=== PATIENT | female | born 1960 | race Caucasian/White ===

== ENCOUNTER 2017-06-04 03:44 | Observation (INO) | payer SELFPAY ==
--- NOTE | 2017-06-04 04:00 | ED PDOC ---
Arrival/HPI - General Time Seen by Provider: 06/04/17 03:59 Historian: Patient, Family - History of Present Illness Narrative History of Present Illness (Text): 06/04/17 04:00 Sunita Villegas is a 57 year old female, whose past medical history includes hypertension and anemia, who presents to the Emergency department accompanied by family complaining of chest pain. Relative states patient has been experiencing intermittent mid-sternal chest pain for the past 4 days, worsened with deep inspiration, with associated upper abdominal pain. Patient denies any fever, chills, shortness of breath, nausea, vomiting, diarrhea, urinary symptoms , back pain, neck pain, headache, dizziness, or any other complaints. Time/Duration: < week (4 days) Symptom Onset: Gradual Symptom Course: Intermittent Activities at Onset: Rest, Light Context: Home Past Medical History - Provider Review Nursing Documentation Reviewed: Yes - Cardiac Hx Hypotension: Yes - Psychiatric Hx Substance Use: No Family/Social History - Physician Review Nursing Documentation Reviewed: Yes Family/Social History: Unknown Family HX Smoking Status: no Hx Alcohol Use: No Hx Substance Use: No Allergies/Home Meds Allergies/Adverse Reactions: Allergies No Known Allergies Allergy (Verified 06/04/17 03:49) Home Medications: Home Meds Medication Instructions Recorded Confirmed Unobtainable 06/04/17 06/04/17 Review of Systems - Physician Review All systems were reviewed & negative as marked: Yes - Review of Systems Constitutional: Normal. absent: Fevers Eyes: Normal ENT: Normal Respiratory: Normal. absent: SOB, Cough Cardiovascular: Chest Pain Gastrointestinal: Abdominal Pain Genitourinary Female: Normal Musculoskeletal: Normal. absent: Back Pain, Neck Pain Skin: Normal. absent: Rash Neurological: Normal. absent: Headache, Dizziness Endocrine: Normal Hemo/Lymphatic: Normal Psychiatric: Normal Physical Exam Vital Signs Reviewed: Yes Vital Signs Temp Pulse Resp BP Pulse Ox 06/04/17 07:21 50 L 16 167/92 H 98 06/04/17 06:49 45 L 18 124/87 100 06/04/17 03:56 98.1 F 54 L 18 146/84 99 Temperature: Afebrile Blood Pressure: Normal Pulse: Regular Respiratory Rate: Normal Appearance: Positive for: Well-Appearing, Non-Toxic, Comfortable Pain Distress: None Mental Status: Positive for: Alert and Oriented X 3 - Systems Exam Head: Present: Atraumatic, Normocephalic Pupils: Present: PERRL Extroacular Muscles: Present: EOMI Conjunctiva: Present: Normal Mouth: Present: Moist Mucous Membranes Neck: Present: Normal Range of Motion Respiratory/Chest: Present: Clear to Auscultation, Good Air Exchange. No: Respiratory Distress, Accessory Muscle Use Cardiovascular: Present: Regular Rate and Rhythm, Normal S1, S2. No: Murmurs Abdomen: Present: Normal Bowel Sounds. No: Tenderness, Distention, Peritoneal Signs Back: Present: Normal Inspection Upper Extremity: Present: Normal Inspection. No: Cyanosis, Edema Lower Extremity: Present: Normal Inspection. No: Edema Neurological: Present: GCS=15, CN II-XII Intact, Speech Normal Skin: Present: Warm, Dry, Normal Color. No: Rashes Psychiatric: Present: Alert, Oriented x 3, Normal Insight, Normal Concentration Medical Decision Making ED Course and Treatment: 06/04/17 04:00 Impression: 57 year old female complaining of chest pain and upper abdominal pain. Plan: -- EKG -- Chest X-ray -- Labs, cardiac enzymes, D-dimer -- Urinalysis -- Reassess and disposition Progress Notes: Reviewed EKG, sinus bradycardia at [address] bpm[address] Non-specific ST/T wave changes. 06/04/17 05:00 Reviewed radiology, Chest X-ray shows no acute processes. case d/w dr canela accepts case 06/05/17 06:31 - Lab Interpretations Lab Results: 06/04/17 05:10 06/04/17 05:10 Lab Results 06/04/17 05:10: Sodium 145, Potassium 3.9, Chloride 105, Carbon Dioxide 30, Anion Gap 14, BUN 16, Creatinine 0.9, Est GFR ( Amer) > 60, Est GFR (Non- Af Amer) > 60, Random Glucose 89, Calcium 10.1, Magnesium 2.0, Total Bilirubin 0.6, AST 33, ALT 38, Alkaline Phosphatase 75, Lactate Dehydrogenase 519, Total Creatine Kinase 120, Troponin I < 0.01, Total Protein 8.7 H, Albumin 4.6, Globulin 4.1, Albumin/Globulin Ratio 1.1, Triglycerides 218 H, Cholesterol 189, LDL Cholesterol Direct 116, HDL Cholesterol 34, Lipase 252 06/04/17 05:10: D-Dimer, Quantitative 0.37 06/04/17 05:10: WBC 5.3, RBC 4.66, Hgb 14.1, Hct 41.1, MCV 88.2, MCH 30.3, MCHC 34.3, RDW 14.1, Plt Count 199, MPV 11.6 H, Gran % 46.8 L, Lymph % (Auto) 40.2 H , [place] % (Auto) 10.3 H, Eos % (Auto) 2.3, Baso % (Auto) 0.4, Gran # 2.49, Lymph # 2.1, [place] # 0.6, Eos # 0.1, Baso # 0.02 - RAD Interpretation Radiology Orders: 06/04/17 04:00 CHEST PORTABLE [RAD] Stat - EKG Interpretation Interpreted by ED Physician: Yes Type: 12 lead EKG - Medication Orders Current Medication Orders: Hydralazine HCl (Apresoline) 10 mg IVP Q6 PRN PRN Reason: Systolic Blood Pressure Ibuprofen (Motrin Tab) 400 mg PO Q6H PRN PRN Reason: Headache Last Admin: 06/04/17 15:50 Dose: 400 mg Lisinopril (Zestril) 10 mg PO DAILY [facility] Last Admin: 06/04/17 10:19 Dose: 10 mg Pantoprazole Sodium (Protonix Ec Tab) 40 mg PO 0600 [facility] Last Admin: 06/05/17 06:06 Dose: 40 mg Discontinued Medications Acetaminophen (Tylenol 325mg Tab) 650 mg PO STAT ONE Stop: 06/04/17 20:14 Last Admin: 06/04/17 20:23 Dose: 650 mg Aspirin (Ecotrin) 325 mg PO STAT STA Stop: 06/04/17 06:58 Last Admin: 06/04/17 07:10 Dose: 325 mg Nitroglycerin (Nitro-Bid 2% Oint) 1 ea TOP ONCE STA Stop: 06/04/17 06:58 Last Admin: 06/04/17 07:10 Dose: 1 ea Pantoprazole Sodium (Protonix Inj) 40 mg IVP DAILY [facility] Last Admin: 06/04/17 10:14 Dose: 40 mg - Scribe Statement The provider has reviewed the documentation as recorded by the Cindy Garrison Provider Scribe Attestation: All medical record entries made by the Felixibriley were at my direction and personally dictated by me. I have reviewed the chart and agree that the record accurately reflects my personal performance of the history, physical exam, medical decision making, and the department course for this patient. I have also personally directed, reviewed, and agree with the discharge instructions and disposition. Disposition/Present on Arrival - Present on Arrival Any Indicators Present on Arrival: No History of DVT/PE: No History of Uncontrolled Diabetes: No Urinary Catheter: No History of Decub. Ulcer: No History Surgical Site Infection Following: None - Disposition Have Diagnosis and Disposition been Completed?: Yes Diagnosis: Chest pain Disposition: HOSPITALIZED Disposition Time: 07:30 Condition: GOOD
[2017-06-04 05:56] LABS: BASO # 0.02 K/mm3 (0.0-2.0); BASO % 0.4 % (0.0-3.0); EOS # 0.1 (0.0-0.7); EOS % 2.3 % (1.5-5.0); GRAN # 2.49 (1.4-6.5); GRAN % 46.8 % (50.0-68.0); HEMATOCRIT 41.1 % (36.0-48.0); LYMPH # 2.1 (1.2-3.4); LYMPH % 40.2 % (22.0-35.0); MEAN CELL VOLUME 88.2 fl (80.0-105.0); MEAN CORPUSCULAR HEMOGLOBIN 30.3 pg (25.0-35.0); MEAN CORPUSCULAR HGB CONC 34.3 g/dl (31.0-37.0); MEAN PLATELET VOLUME 11.6 fl (7.0-11.0); MONO # 0.6 (0.1-0.6); MONO % 10.3 % (1.0-6.0); RED CELL DISTRIBUTION WIDTH 14.1 % (11.5-14.5); WHITE BLOOD COUNT 5.3 10^3/ul (4.5-11.0)
[2017-06-04 06:02] LABS: ALB/GLOB RATIO 1.1 (1.1-1.8); ALKALINE PHOSPHATASE 75 U/L (38-133); ALT/SGPT 38 U/L (7-56); AST/SGOT 33 U/L (15-39); BILIRUBIN,TOTAL 0.6 mg/dL (0.2-1.3); BLOOD UREA NITROGEN 16 mg/dL (7-21); CALCIUM 10.1 mg/dL (8.4-10.5); CARBON DIOXIDE 30 mmol/L (21-33); CHLORIDE 105 mmol/L (98-107); GFR AFRICAN-AMERICAN > 60; GLUCOSE,RANDOM 89 mg/dL (70-110); POTASSIUM 3.9 mmol/L (3.6-5.0); SODIUM 145 mmol/L (132-148); TOTAL PROTEIN 8.7 g/dL (5.8-8.3)
[2017-06-04 06:16] LABS: TROPONIN I < 0.01 ng/mL
[2017-06-04] MEDS ORDERED: Nitroglycerin 2% Ointment Foilpak UD TOP STA (06:57)
[2017-06-04] MEDS ORDERED: Aspirin 325 mg EC Tablets PO STA (06:57)
[2017-06-04 09:57] LABS: CHOLESTEROL 189 mg/dL (130-200); LIPASE 252 U/L (23-300)
--- NOTE | 2017-06-04 10:53 | CARD ---
APPROVED REPORT EKG Measurement Heart [id number] <Conclusion> Sinus bradycardia Possible Left atrial enlargement Borderline ECG
--- NOTE | 2017-06-04 11:21 | RAD ---
HISTORY: cp COMPARISON: No prior. FINDINGS: LUNGS: No active pulmonary disease. PLEURA: No significant pleural effusion identified, no pneumothorax apparent. CARDIOVASCULAR: Normal. OSSEOUS STRUCTURES: No significant abnormalities. VISUALIZED UPPER ABDOMEN: Normal. OTHER FINDINGS: None. IMPRESSION: No active disease.
[2017-06-04 12:48] VITALS: BMI 30.2
--- NOTE | 2017-06-04 14:14 | CP.PCM.HP ---
<DELA CRUZRICCO - Last Filed: 06/04/17 14:19> History of Present Illness - History of Present Illness History of Present Illness: CC: Chest Pain HPI: Mrs. Villegas is a 57 year old [place] female with a past medical history significant for HTN and hemolytic anemia who presented to the [facility] [place] [place] ED complaining of substernal chest pain over the course of the past four days. Patient describes the pain as a constant pressure that radiates to her back and intermittently to her right arm and leg. She reports that the pain is only present at night whenever she gets into bed and that she does not experience this pain during the day. She reports that it has no associations with activity , rest, certain foods, eating or body positions and no alleviating or aggravating factors. She endorses that she was seen in a hospital in [place] last year where she was found to have a hemoglobin of 3 and was given an unspecified amount of units of blood at that time with a diagnosis of hemolytic anemia. At that visit, she was also experiencing a similar type of chest pain and received a cardiac work up which included an ECHO that the patient reports as "normal". Of note, patient lives in [place] and is here visiting her daughter, who provided translation for the evaluation. She has been here for a total of three months and states that she visits her daughter for six months at a time. She denies any vertigo, LOC, headache, fever, chills, weight loss or gain, hair thinning, changes in her vision, shortness of breath, cough, palpitations, abdominal pain, N/V, diarrhea, constipation, any new rashes, or any new numbness /tingling/weakness of any of her extremities. PMH: HTN and Hemolytic Anemia PSH: Denies Family History: Father has CRC; Denies any history of CAD or CT at any age Social History: Denies tobacco, alcohol and illicit drug use; Patient is currently visiting her daughter and lives in [place] LMP: 07/2016 Allergies: NKDA Home Medications: 20mg of "amandeep colored pill" for HTN Present on Admission - Present on Admission Any Indicators Present on Admission: No Review of Systems - Review of Systems Review of Systems: Please refer to HPI Past Patient History - Past Social History Smoking Status: Never Smoked - CARDIAC Hx Cardiac Disorders: Yes (hypotention) - HEMATOLOGICAL/ONCOLOGICAL Hx Anemia: Yes - MUSCULOSKELETAL/RHEUMATOLOGICAL Hx Falls: No - PSYCHIATRIC Hx Substance Use: No Meds Allergies/Adverse Reactions: Allergies Allergy/AdvReac Type Severity Reaction Status Date / Time No Known Allergies Allergy Verified 06/04/17 03:49 Physical Exam - Constitutional Appears: Non-toxic, No Acute Distress - Head Exam Head Exam: ATRAUMATIC, NORMOCEPHALIC - Eye Exam Eye Exam: EOMI, Normal appearance, PERRL Pupil Exam: NORMAL ACCOMODATION - ENT Exam ENT Exam: Mucous Membranes Moist, Normal Exam, Normal Oropharynx - Neck Exam Neck exam: Positive for: Full Rom, Normal Inspection. Negative for: Lymphadenopathy, Tenderness - Respiratory Exam Respiratory Exam: Clear to Auscultation Bilateral, NORMAL BREATHING PATTERN. absent: Chest Wall Tenderness, Rales, Rhonchi, Wheezes, Respiratory Distress - Cardiovascular Exam Cardiovascular Exam: Bradycardia, REGULAR RHYTHM, +S1, +S2. absent: Tachycardia , RRR, Systolic Murmur Additional comments: HR in the 50's on exam - GI/Abdominal Exam GI & Abdominal Exam: Normal Bowel Sounds, Soft. absent: Distended, Firm, Guarding, Tenderness Additional comments: [place] Sign negative - Exam Exam: absent: Bladder Distension - Extremities Exam Extremities exam: Positive for: normal capillary refill, pedal pulses present. Negative for: calf tenderness, pedal edema - Back Exam Back exam: absent: CVA tenderness (L), CVA tenderness (R), paraspinal tenderness , rash noted, vertebral tenderness - Neurological Exam Neurological exam: Alert, Oriented x3 - Psychiatric Exam Psychiatric exam: Normal Affect, Normal Mood - Skin Skin Exam: Dry, Intact, Normal Color, Warm Results - Vital Signs Recent Vital Signs: Last Vital Signs Temp 98.2 F 06/04/17 09:56 Pulse 56 L 06/04/17 12:45 Resp 16 06/04/17 12:45 BP 164/82 H 06/04/17 12:45 Pulse Ox 98 06/04/17 07:21 - Labs Result Diagrams: 06/04/17 05:10 06/04/17 05:10 Labs: Laboratory Results - last 24 hr 06/04/17 06/04/17 09:49 10:59 Troponin I < 0.01 TSH 3rd Generation 2.93 - EKG Data EKG Interpreted by: Myself EKG shows normal: Sinus rhythm Rate: Bradycardia Assessment & Plan - Assessment and Plan (Free Text) Assessment: 57 year old Welsh female with a past medical history significant for HTN and hemolytic anemia who presented to the [facility] [place] [place] ED complaining of substernal chest pain over the course of the past four days. Patient is here visiting her daughter and lives in [place]. Plan: 1. Substernal Angina Pectoris -Etiologies considered: CAD, CT, PE, Cholecystitis, Pancreatitis and Costochondritis -EKG shows sinus bradycardia at 53 bpm -Chest X-Ray showed no active disease -Negative D-dimer -Lipase WNL -three serial troponins ordered with two resulting as negative thus far -isolated elevation in triglycerides at 218, otherwise normal lipid panel -motrin 400mg PO Q6H PRN for pain control/headaches -UDS, Hemoglobin A1C, Thoracic Spine X-Ray, ECHO and repeat EKG pending -Heart Healthy Carbohydrate Consistent Diet -telemetry monitoring 2. Bradycardia -patient reports this as a chronic condition -HR has been in 50's since admission -TSH 2.93 (WNL) -currently asymptomatic but will continue to monitor 3. HTN -start lisinopril 10mg daily and hydralazine 10mg PRN for SBP over 170mmHG -will monitor with Q8H vital signs 4. GI/DVT Prophylaxis -Protonix/scd's Patient seen and case discussed with attending, Dr. Matti Landa. - Date & Time Date: 06/04/17 Time: 14:17 Decision To Admit - Pt Status Changed To: Hospital Disposition Of: Observation - . Bed Request Type: Telemetry <Matti Landa - Last Filed: 06/05/17 16:34> Results - Vital Signs Recent Vital Signs: Last Vital Signs Temp 97.7 F 06/05/17 12:00 Pulse 50 L 06/05/17 13:50 Resp 28 H 06/05/17 13:50 BP 135/78 06/05/17 12:30 Pulse Ox 96 06/05/17 10:00 - Labs Result Diagrams: 06/05/17 06:20 06/05/17 06:20 Labs: Laboratory Results - last 24 hr 06/04/17 06/04/17 06/05/17 07:30 16:30 06:20 WBC RBC Hgb Hct MCV MCH MCHC RDW Plt Count MPV Gran % Lymph % (Auto) [place] % (Auto) Eos % (Auto) Baso % (Auto) Gran # Lymph # [place] # Eos # Baso # Sodium Potassium Chloride Carbon Dioxide Anion Gap BUN Creatinine Est GFR ( Amer) Est GFR (Non-Af Amer) Random Glucose Hemoglobin A1c 5.3 Calcium Total Bilirubin AST ALT Alkaline Phosphatase Troponin I < 0.01 Total Protein Albumin Globulin Albumin/Globulin Ratio Urine Color Yellow Urine Appearance Sl cloudy Urine pH 6.0 Ur Specific [place] >= 1.030 Urine Protein Trace H Urine Glucose (UA) Negative Urine Ketones Negative Urine Blood Negative Urine Nitrate Negative Urine Bilirubin Negative Urine Urobilinogen 0.2 Ur Leukocyte Esterase Moderate H Urine RBC 0 - 2 Urine WBC 5 - 10 Ur Epithelial Cells 3 - 4 Urine Bacteria Mod Urine Opiates Screen Urine Methadone Screen Ur Barbiturates Screen Ur Phencyclidine Scrn Ur Amphetamines Screen U Benzodiazepines Scrn U Oth Cocaine Metabols U Cannabinoids Screen 06/05/17 06/05/17 06/05/17 06:20 06:20 06:20 WBC 5.9 RBC 4.58 Hgb 13.6 Hct 40.3 MCV 88.0 MCH 29.7 MCHC 33.7 RDW 14.1 Plt Count 179 MPV 10.8 Gran % 52.5 Lymph % (Auto) 37.1 H [place] % (Auto) 7.7 H Eos % (Auto) 2.4 Baso % (Auto) 0.3 Gran # 3.09 Lymph # 2.2 [place] # 0.5 Eos # 0.1 Baso # 0.02 Sodium 144 Potassium 4.4 Chloride 105 Carbon Dioxide 30 Anion Gap 13 BUN 22 H Creatinine 1.0 Est GFR ( Amer) > 60 Est GFR (Non-Af Amer) 57 Random Glucose 93 Hemoglobin A1c Calcium 9.5 Total Bilirubin 0.8 AST 28 ALT 35 Alkaline Phosphatase 64 Troponin I Total Protein 8.0 Albumin 4.3 Globulin 3.8 Albumin/Globulin Ratio 1.1 Urine Color Urine Appearance Urine pH Ur Specific [place] Urine Protein Urine Glucose (UA) Urine Ketones Urine Blood Urine Nitrate Urine Bilirubin Urine Urobilinogen Ur Leukocyte Esterase Urine RBC Urine WBC Ur Epithelial Cells Urine Bacteria Urine Opiates Screen Negative Urine Methadone Screen Negative Ur Barbiturates Screen Negative Ur Phencyclidine Scrn Negative Ur Amphetamines Screen Negative U Benzodiazepines Scrn Negative U Oth Cocaine Metabols Negative U Cannabinoids Screen Negative Attending/Attestation - Attestation I have personally seen and examined this patient.: Yes I have fully participated in the care of the patient.: Yes I have reviewed all pertinent clinical information: Yes Notes (Text): I have seen and examined patient at bedside. Agree with the above note with the following additions/ exceptions: Briefly this is 57 year old [place] female with history of HTN, sinus bradycardia and hemolytic anemia who was admitted for evaluation of chest pain. EKG showed SB. Initial CE is negative. CXR is negative. Patient complains of pain in the mid back in thoracic region. Will monitor patient in telemetry floor. Will monitor serial cardiac iso and ekg. Last stress test done 1 year ago was normal. Will order thoracic spine xray. Start lisinopril for HTN. Upon discharge patient will follow up with PMD. Dr Matti Landa
--- NOTE | 2017-06-04 17:15 | RAD ---
HISTORY: Back pain COMPARISON: No prior. FINDINGS: BONES: Alignment maintained. No fracture. DISC SPACES: Normal. SOFT TISSUES: Normal. OTHER FINDINGS: None. IMPRESSION: Normal radiographs of the thoracic spine.
[2017-06-05] MEDS ORDERED: Pantoprazole 40 mg EC Tab PO SCH (06:00)
[2017-06-05 06:33] LABS: URINE BILIRUBIN NEGATIVE (NEGATIVE); URINE BLOOD NEGATIVE (NEGATIVE); URINE GLUCOSE (UA) NEGATIVE (NEGATIVE); URINE KETONE NEGATIVE (NEGATIVE); URINE LEUKOCYTE ESTERASE MODERATE Leu/uL (NEGATIVE); URINE PROTEIN TRACE mg/dL (<30 mg/dL); URINE UROBILINOGEN 0.2 E.U./dL (<1 E.U./dL)
[2017-06-05 06:35] LABS: URINE APPEARANCE SL CLOUDY (CLEAR); URINE COLOR YELLOW (YELLOW)
[2017-06-05 06:49] LABS: BASO # 0.02 K/mm3 (0.0-2.0); BASO % 0.3 % (0.0-3.0); EOS # 0.1 (0.0-0.7); EOS % 2.4 % (1.5-5.0); GRAN # 3.09 (1.4-6.5); GRAN % 52.5 % (50.0-68.0); HEMATOCRIT 40.3 % (36.0-48.0); LYMPH # 2.2 (1.2-3.4); LYMPH % 37.1 % (22.0-35.0); MEAN CORPUSCULAR HEMOGLOBIN 29.7 pg (25.0-35.0); MEAN CORPUSCULAR HGB CONC 33.7 g/dl (31.0-37.0); MEAN PLATELET VOLUME 10.8 fl (7.0-11.0); MONO # 0.5 (0.1-0.6); MONO % 7.7 % (1.0-6.0); RED CELL DISTRIBUTION WIDTH 14.1 % (11.5-14.5); WHITE BLOOD COUNT 5.9 10^3/ul (4.5-11.0)
[2017-06-05 06:59] LABS: URINE BACTERIA MOD (NEG); URINE RBC 0 - 2 /hpf (0-2)
[2017-06-05 07:06] LABS: ALB/GLOB RATIO 1.1 (1.1-1.8); ALKALINE PHOSPHATASE 64 U/L (38-133); ALT/SGPT 35 U/L (7-56); AST/SGOT 28 U/L (15-39); BILIRUBIN,TOTAL 0.8 mg/dL (0.2-1.3); BLOOD UREA NITROGEN 22 mg/dL (7-21); CALCIUM 9.5 mg/dL (8.4-10.5); CARBON DIOXIDE 30 mmol/L (21-33); CHLORIDE 105 mmol/L (98-107); GFR AFRICAN-AMERICAN > 60; GLUCOSE,RANDOM 93 mg/dL (70-110); POTASSIUM 4.4 mmol/L (3.6-5.0); SODIUM 144 mmol/L (132-148)
[2017-06-05 08:25] VITALS: TEMP 97.7
[2017-06-05] MEDS ORDERED: Tmp-Smz 800 mg-160 mg DS Tab PO SCH (10:00)
[2017-06-05 10:40] VITALS: O2SAT 96
[2017-06-05 13:56] VITALS: PULSE 50; RESP 28
[2017-06-05 14:24] VITALS: BP 135/78
--- NOTE | 2017-06-05 15:25 | CARD ---
APPROVED REPORT EXAM: Two-dimensional and M-mode echocardiogram with Doppler and color Doppler. INDICATION Chest Pain 2D DIMENSIONS Left Atrium (2D)4.0 (1.6-4.0cm)IVSd1.2 (0.7-1.1cm) LVDd3.8 (3.9-5.9cm)PWd1.2 (0.7-1.1cm) LVDs2.7 (2.5-4.0cm)FS (%) 29.9 % LVEF (%)57.8 (>50%) M-Mode DIMENSIONS Aortic Root2.30 (2.2-3.7cm)Aortic Cusp Exc.1.50 (1.5-2.0cm) Aortic Valve AoV Peak Jwsrdkue799.0cm/[place] Peak GR.13mmHg Mitral Valve MV E Kfeauumw11.1cm/sMV A Rginsagi14.0cm/sE/A ratio0.9 TDI E/Lateral E'0.0E/Medial E'0.0 Tricuspid Valve TR Peak [id number]/sRAP [id number] Peak Gr.29mmHg [id number] LEFT VENTRICLE The left ventricle is normal size. There is borderline concentric left ventricular hypertrophy. The left ventricular function is normal. The left ventricular ejection fraction is within the normal range. There is normal LV segmental wall motion. Transmitral Doppler flow pattern is Grade I-abnormal relaxation pattern. RIGHT VENTRICLE The right ventricle is normal size. There is normal right ventricular wall thickness. The right ventricular systolic function is normal. ATRIA The left atrium size is normal. The right atrium size is normal. AORTIC VALVE The aortic valve is not well visualized. There is trace to mild aortic regurgitation. MITRAL VALVE The mitral valve is normal in structure. There is no mitral valve regurgitation noted. TRICUSPID VALVE There is mild tricuspid regurgitation. There is mild pulmonary hypertension. GREAT VESSELS The aortic root is normal in size. The IVC was not visualized. <Conclusion> The left ventricle is normal size. There is borderline concentric left ventricular hypertrophy. The left ventricular function is normal. The left ventricular ejection fraction is within the normal range. There is normal LV segmental wall motion. Transmitral Doppler flow pattern is Grade I-abnormal relaxation pattern. There is trace to mild aortic regurgitation. There is mild tricuspid regurgitation. There is mild pulmonary hypertension.
--- NOTE | 2017-06-05 15:38 | CARD ---
APPROVED REPORT EKG Measurement Heart [id number] <Conclusion> Marked sinus bradycardia Abnormal ECG
--- NOTE | 2017-06-28 12:45 | CP.PCM.DIS ---
<RICCO DELA CRUZ - Last Filed: 06/28/17 12:58> Provider - Provider Date of Admission: 06/04/17 06:57 Attending physician: Matti Landa MD Time Spent in preparation of Discharge (in minutes): 41 Hospital Course - Lab Results Lab Results: Most Recent Lab Values WBC 5.9 10^3/ul (4.5-11.0) 06/05/17 06:20 RBC 4.58 10^6/uL (3.5-6.1) 06/05/17 06:20 Hgb 13.6 g/dL (12.0-16.0) 06/05/17 06:20 Hct 40.3 % (36.0-48.0) 06/05/17 06:20 MCV 88.0 fl (80.0-105.0) 06/05/17 06:20 MCH 29.7 pg (25.0-35.0) 06/05/17 06:20 MCHC 33.7 g/dl (31.0-37.0) 06/05/17 06:20 RDW 14.1 % (11.5-14.5) 06/05/17 06:20 Plt Count 179 10^3/uL (120.0-450.0) 06/05/17 06:20 MPV 10.8 fl (7.0-11.0) 06/05/17 06:20 Gran % 52.5 % (50.0-68.0) 06/05/17 06:20 Lymph % (Auto) 37.1 % (22.0-35.0) H 06/05/17 06:20 [place] % (Auto) 7.7 % (1.0-6.0) H 06/05/17 06:20 Eos % (Auto) 2.4 % (1.5-5.0) 06/05/17 06:20 Baso % (Auto) 0.3 % (0.0-3.0) 06/05/17 06:20 Gran # 3.09 (1.4-6.5) 06/05/17 06:20 Lymph # 2.2 (1.2-3.4) 06/05/17 06:20 [place] # 0.5 (0.1-0.6) 06/05/17 06:20 Eos # 0.1 (0.0-0.7) 06/05/17 06:20 Baso # 0.02 K/mm3 (0.0-2.0) 06/05/17 06:20 D-Dimer, Quantitative 0.37 mg/L FEU (0-0.50) 06/04/17 05:10 Sodium 144 mmol/L (132-148) 06/05/17 06:20 Potassium 4.4 mmol/L (3.6-5.0) 06/05/17 06:20 Chloride 105 mmol/L (98-107) 06/05/17 06:20 Carbon Dioxide 30 mmol/L (21-33) 06/05/17 06:20 Anion Gap 13 (10-20) 06/05/17 06:20 BUN 22 mg/dL (7-21) H 06/05/17 06:20 Creatinine 1.0 mg/dL (0.5-1.4) 06/05/17 06:20 Est GFR ( Amer) > 60 06/05/17 06:20 Est GFR (Non-Af Amer) 57 06/05/17 06:20 Random Glucose 93 mg/dL (70-110) 06/05/17 06:20 Hemoglobin A1c 5.3 % (4.2-6.5) 06/04/17 07:30 Calcium 9.5 mg/dL (8.4-10.5) 06/05/17 06:20 Magnesium 2.0 mg/dL (1.7-2.2) 06/04/17 05:10 Total Bilirubin 0.8 mg/dL (0.2-1.3) 06/05/17 06:20 AST 28 U/L (15-39) 06/05/17 06:20 ALT 35 U/L (7-56) 06/05/17 06:20 Alkaline Phosphatase 64 U/L (38-133) 06/05/17 06:20 Lactate Dehydrogenase 519 U/L (333-699) 06/04/17 05:10 Total Creatine Kinase 120 U/L (35-230) 06/04/17 05:10 Troponin I < 0.01 ng/mL 06/04/17 16:30 Total Protein 8.0 g/dL (5.8-8.3) 06/05/17 06:20 Albumin 4.3 g/dL (3.0-4.8) 06/05/17 06:20 Globulin 3.8 gm/dL 06/05/17 06:20 Albumin/Globulin Ratio 1.1 (1.1-1.8) 06/05/17 06:20 Triglycerides 218 mg/dL (35-160) H 06/04/17 05:10 Cholesterol 189 mg/dL (130-200) 06/04/17 05:10 LDL Cholesterol Direct 116 mg/dL (0-129) 06/04/17 05:10 HDL Cholesterol 34 mg/dL (29-60) 06/04/17 05:10 Lipase 252 U/L (23-300) 06/04/17 05:10 TSH 3rd Generation 2.93 mIU/mL (0.46-4.68) 06/04/17 09:49 Urine Color Yellow (YELLOW) 06/05/17 06:20 Urine Appearance Sl cloudy (CLEAR) 06/05/17 06:20 Urine pH 6.0 (4.7-8.0) 06/05/17 06:20 Ur Specific [place] >= 1.030 (1.005-1.035) 06/05/17 06:20 Urine Protein Trace mg/dL (<30 mg/dL) H 06/05/17 06:20 Urine Glucose (UA) Negative mg/dL (NEGATIVE) 06/05/17 06:20 Urine Ketones Negative mg/dL (NEGATIVE) 06/05/17 06:20 Urine Blood Negative (NEGATIVE) 06/05/17 06:20 Urine Nitrate Negative (NEGATIVE) 06/05/17 06:20 Urine Bilirubin Negative (NEGATIVE) 06/05/17 06:20 Urine Urobilinogen 0.2 E.U./dL (<1 E.U./dL) 06/05/17 06:20 Ur Leukocyte Esterase Moderate Elsa/uL (NEGATIVE) H 06/05/17 06:20 Urine RBC 0 - 2 /hpf (0-2) 06/05/17 06:20 Urine WBC 5 - 10 /hpf (0-6) 06/05/17 06:20 Ur Epithelial Cells 3 - 4 /hpf (0-5) 06/05/17 06:20 Urine Bacteria Mod (NEG) 06/05/17 06:20 Urine Opiates Screen Negative (NEGATIVE) 06/05/17 06:20 Urine Methadone Screen Negative (NEGATIVE) 06/05/17 06:20 Ur Barbiturates Screen Negative (NEGATIVE) 06/05/17 06:20 Ur Phencyclidine Scrn Negative (NEGATIVE) 06/05/17 06:20 Ur Amphetamines Screen Negative (NEGATIVE) 06/05/17 06:20 U Benzodiazepines Scrn Negative (NEGATIVE) 06/05/17 06:20 U Oth Cocaine Metabols Negative (NEGATIVE) 06/05/17 06:20 U Cannabinoids Screen Negative (NEGATIVE) 06/05/17 06:20 - Hospital Course Hospital Course: 57 year old [place] female with a past medical history significant for HTN and hemolytic anemia who presented to the [facility] ED complaining of substernal chest pain over the course of the past four days. Patient is here visiting her daughter and lives in [place], where her medical care is provided. Patient had a negative D-dimer and her lipase was WNL. Three serial troponins were ordered and all came back <0.01. A CBC and CMP both were normal and a hemoglobin A1C was also normal. A lipid panel showed only isolated mild elevation in triglycerides at 218. A radiograph of her thoracic spine was ordered and showed no acute abnormalities. An EKG showed sinus bradycardia at 53 bpm, which patient reports as her normal, and a chest X-Ray showed no active disease. An ECHO was done and showed a normal LVEF at 57.8% with normal LV function. A TSH for bradycardia was ordered and was found to be 2.93, WNL. A UA showed signs of UTI, including moderate leukocyte esterase and moderate bacteria. Patient was discharged HDS and with instructions to follow up with her PCP in [place] upon her return and with a 10 day course of bactrim for UTI to be completed. We recommended patient undergo an outpatient cardiac stress test. - Date & Time of H&P Date of H&P: 06/04/17 Time of H&P: 14:01 Discharge Exam - Head Exam Head Exam: ATRAUMATIC, NORMOCEPHALIC - Eye Exam Eye Exam: EOMI, Normal appearance, PERRL Pupil Exam: NORMAL ACCOMODATION, PERRL - ENT Exam ENT Exam: Mucous Membranes Moist, Normal Oropharynx - Neck Exam Neck exam: Full Rom - Respiratory Exam Respiratory Exam: Clear to PA & Lateral, NORMAL BREATHING PATTERN, UNREMARKABLE - Cardiovascular Exam Cardiovascular Exam: REGULAR RHYTHM, RRR - GI/Abdominal Exam GI & Abdominal Exam: Normal Bowel Sounds, Soft, Unremarkable - Exam Exam: absent: Bladder Distension - Extremities Exam Extremities exam: normal capillary refill, normal inspection, pedal pulses present - Neurological Exam Neurological exam: Alert, Oriented x3 - Psychiatric Exam Psychiatric exam: Normal Affect, Normal Mood - Skin Skin Exam: Dry, Intact, Normal Color, Warm Discharge Plan - Discharge Medications Prescriptions: [place]-3 Fatty Acids [[place]-3] 1,000 mg PO DAILY #30 capsule Sulfamethoxazole/Trimethoprim [Bactrim DS 800 mg-160 mg] 1 tab PO Q12 #20 tab - Follow Up Plan Condition: GOOD Disposition: HOME/ ROUTINE Instructions: Cardiac Stress Test (DC), Chest Pain (DC), Exercise Stress Echocardiography (DC) Additional Instructions: 1. If there are any abnormalities with your Echocardiogram, we will contact you with the contact information that you have provided immediately with any recommendations. 2. Please follow up with your PMD within 1-2 weeks for a post hospitalization appointment to discuss the medical conditions addressed at this visit. We recommend that you undergo a cardiac stress test to rule out any stress related cardiac ischemia. 3. Please take all medications as prescribed. 4. If your symptoms should worsen or persist, please seek medical emergency attention. <Matti Landa - Last Filed: 06/28/17 16:58> Provider - Provider Date of Admission: 06/04/17 06:57 Attending physician: Matti Landa MD Hospital Course - Lab Results Lab Results: Most Recent Lab Values WBC 5.9 10^3/ul (4.5-11.0) 06/05/17 06:20 RBC 4.58 10^6/uL (3.5-6.1) 06/05/17 06:20 Hgb 13.6 g/dL (12.0-16.0) 06/05/17 06:20 Hct 40.3 % (36.0-48.0) 06/05/17 06:20 MCV 88.0 fl (80.0-105.0) 06/05/17 06:20 MCH 29.7 pg (25.0-35.0) 06/05/17 06:20 MCHC 33.7 g/dl (31.0-37.0) 06/05/17 06:20 RDW 14.1 % (11.5-14.5) 06/05/17 06:20 Plt Count 179 10^3/uL (120.0-450.0) 06/05/17 06:20 MPV 10.8 fl (7.0-11.0) 06/05/17 06:20 Gran % 52.5 % (50.0-68.0) 06/05/17 06:20 Lymph % (Auto) 37.1 % (22.0-35.0) H 06/05/17 06:20 [place] % (Auto) 7.7 % (1.0-6.0) H 06/05/17 06:20 Eos % (Auto) 2.4 % (1.5-5.0) 06/05/17 06:20 Baso % (Auto) 0.3 % (0.0-3.0) 06/05/17 06:20 Gran # 3.09 (1.4-6.5) 06/05/17 06:20 Lymph # 2.2 (1.2-3.4) 06/05/17 06:20 [place] # 0.5 (0.1-0.6) 06/05/17 06:20 Eos # 0.1 (0.0-0.7) 06/05/17 06:20 Baso # 0.02 K/mm3 (0.0-2.0) 06/05/17 06:20 D-Dimer, Quantitative 0.37 mg/L FEU (0-0.50) 06/04/17 05:10 Sodium 144 mmol/L (132-148) 06/05/17 06:20 Potassium 4.4 mmol/L (3.6-5.0) 06/05/17 06:20 Chloride 105 mmol/L (98-107) 06/05/17 06:20 Carbon Dioxide 30 mmol/L (21-33) 06/05/17 06:20 Anion Gap 13 (10-20) 06/05/17 06:20 BUN 22 mg/dL (7-21) H 06/05/17 06:20 Creatinine 1.0 mg/dL (0.5-1.4) 06/05/17 06:20 Est GFR ( Amer) > 60 06/05/17 06:20 Est GFR (Non-Af Amer) 57 06/05/17 06:20 Random Glucose 93 mg/dL (70-110) 06/05/17 06:20 Hemoglobin A1c 5.3 % (4.2-6.5) 06/04/17 07:30 Calcium 9.5 mg/dL (8.4-10.5) 06/05/17 06:20 Magnesium 2.0 mg/dL (1.7-2.2) 06/04/17 05:10 Total Bilirubin 0.8 mg/dL (0.2-1.3) 06/05/17 06:20 AST 28 U/L (15-39) 06/05/17 06:20 ALT 35 U/L (7-56) 06/05/17 06:20 Alkaline Phosphatase 64 U/L (38-133) 06/05/17 06:20 Lactate Dehydrogenase 519 U/L (333-699) 06/04/17 05:10 Total Creatine Kinase 120 U/L (35-230) 06/04/17 05:10 Troponin I < 0.01 ng/mL 06/04/17 16:30 Total Protein 8.0 g/dL (5.8-8.3) 06/05/17 06:20 Albumin 4.3 g/dL (3.0-4.8) 06/05/17 06:20 Globulin 3.8 gm/dL 06/05/17 06:20 Albumin/Globulin Ratio 1.1 (1.1-1.8) 06/05/17 06:20 Triglycerides 218 mg/dL (35-160) H 06/04/17 05:10 Cholesterol 189 mg/dL (130-200) 06/04/17 05:10 LDL Cholesterol Direct 116 mg/dL (0-129) 06/04/17 05:10 HDL Cholesterol 34 mg/dL (29-60) 06/04/17 05:10 Lipase 252 U/L (23-300) 06/04/17 05:10 TSH 3rd Generation 2.93 mIU/mL (0.46-4.68) 06/04/17 09:49 Urine Color Yellow (YELLOW) 06/05/17 06:20 Urine Appearance Sl cloudy (CLEAR) 06/05/17 06:20 Urine pH 6.0 (4.7-8.0) 06/05/17 06:20 Ur Specific [place] >= 1.030 (1.005-1.035) 06/05/17 06:20 Urine Protein Trace mg/dL (<30 mg/dL) H 06/05/17 06:20 Urine Glucose (UA) Negative mg/dL (NEGATIVE) 06/05/17 06:20 Urine Ketones Negative mg/dL (NEGATIVE) 06/05/17 06:20 Urine Blood Negative (NEGATIVE) 06/05/17 06:20 Urine Nitrate Negative (NEGATIVE) 06/05/17 06:20 Urine Bilirubin Negative (NEGATIVE) 06/05/17 06:20 Urine Urobilinogen 0.2 E.U./dL (<1 E.U./dL) 06/05/17 06:20 Ur Leukocyte Esterase Moderate Elsa/uL (NEGATIVE) H 06/05/17 06:20 Urine RBC 0 - 2 /hpf (0-2) 06/05/17 06:20 Urine WBC 5 - 10 /hpf (0-6) 06/05/17 06:20 Ur Epithelial Cells 3 - 4 /hpf (0-5) 06/05/17 06:20 Urine Bacteria Mod (NEG) 06/05/17 06:20 Urine Opiates Screen Negative (NEGATIVE) 06/05/17 06:20 Urine Methadone Screen Negative (NEGATIVE) 06/05/17 06:20 Ur Barbiturates Screen Negative (NEGATIVE) 06/05/17 06:20 Ur Phencyclidine Scrn Negative (NEGATIVE) 06/05/17 06:20 Ur Amphetamines Screen Negative (NEGATIVE) 06/05/17 06:20 U Benzodiazepines Scrn Negative (NEGATIVE) 06/05/17 06:20 U Oth Cocaine Metabols Negative (NEGATIVE) 06/05/17 06:20 U Cannabinoids Screen Negative (NEGATIVE) 06/05/17 06:20 Attending/Attestation - Attestation I have personally seen and examined this patient.: Yes I have fully participated in the care of the patient.: Yes I have reviewed all pertinent clinical information, including history, physical exam and plan: Yes Notes (Text): I have seen and examined patient at bedside. Agree with the above note with the following additions/ exceptions: Briefly this is 57 year old [place] female with history of HTN, sinus bradycardia and hemolytic anemia who was admitted for evaluation of chest pain. ACS ruled out. Advised to have out patient stress test. Upon discharge patient will follow up with PMD. Dr Matti Landa
== END 2017-06-05 14:55 | disposition home or self-care (01) ==
LOC: ED 03:44 → ERH 06:57 → CCU 09:20
PROVIDERS: ADMIT Internal Medicine; ATTEND Hospitalist
DX: R07.9 Chest pain, unspecified (principal); D58.9 Hereditary hemolytic anemia, unspecified; I10 Essential (primary) hypertension; R40.2412 Glasgow coma scale score 13-15, at arrival to emergency department; R10.10 Upper abdominal pain, unspecified; R00.1 Bradycardia, unspecified; M54.6 Pain in thoracic spine
CPT/HCPCS: 71010; 72070; 80053; 80061; 81001; 82550; 83036; 83615; 83690; 83735; 84443; 84484; 85025; 85378; 93005; 93306; 99285; C9113; G0378; G0480

== ENCOUNTER 2018-03-16 00:58 | Inpatient (IN) | payer MEDICAID, OTHER ==
[2018-03-16 01:03] VITALS: BMI 34.0
[2018-03-16] MEDS ORDERED: Sodium Chloride 0.9% 1,000 ML IV STA (01:38)
--- NOTE | 2018-03-16 02:28 | ED PDOC ---
Arrival/HPI - General Chief Complaint: Shortness Of Breath Time Seen by Provider: 03/16/18 01:08 Historian: Patient - History of Present Illness Narrative History of Present Illness (Text): 03/16/18 07:19 Patient is a 58 F with a history of hemolytic anemia who presents with a week long duration of weakness, headache, general malaise, chest pain and body aches. Patient's daughter was at bedside which also contributed to patient history. Patient's daughter states she decided to go to the ED tonight due to persistence of these symptoms plus newly onset jaundice which began today. Patient endorsed that her hemolytic anemia took place around 8 months ago and was admitted to [facility] for one month; due to refractive treatment with transfusions, patient was placed on chemotherapy and steroids. Initially hemoglobin upon being admitted to [facility] was 3 however was increased to 14. Patient denies fevers, chills, shortness of breath, abdominal pain, bloody stools, cough. Time/Duration: Prior to Arrival Symptom Onset: Gradual Symptom Course: Unchanged Activities at Onset: Rest Context: Home Past Medical History - Provider Review Nursing Documentation Reviewed: Yes - Reproductive Menopause: Yes - Cardiac Hx Hypertension: Yes - Pulmonary Hx Respiratory Disorders: No - Neurological Hx Neurological Disorder: No - HEENT Hx HEENT Disorder: No - Renal Hx Renal Disorder: No - Endocrine/Metabolic Hx Endocrine Disorders: No - Hematological/Oncological Hx Anemia: Yes - Integumentary Hx Dermatological Disorder: No - Musculoskeletal/Rheumatological Hx Musculoskeletal Disorders: No Hx Falls: No - Gastrointestinal Hx Gastrointestinal Disorders: No - Genitourinary/Gynecological Hx Genitourinary Disorders: No - Psychiatric Hx Psychophysiologic Disorder: No Hx Substance Use: No Family/Social History - Physician Review Nursing Documentation Reviewed: Yes Family/Social History: No Known Family HX Smoking Status: Smoker Currrent Status Unknown Hx Alcohol Use: No Hx Substance Use: No Allergies/Home Meds Allergies/Adverse Reactions: Allergies No Known Allergies Allergy (Verified 03/16/18 01:03) Home Medications: Home Meds Medication Instructions Recorded Confirmed Lisinopril 10 mg PO DAILY 03/16/18 03/16/18 Review of Systems - Physician Review All systems were reviewed & negative as marked: Yes - Review of Systems Constitutional: Fatigue. absent: Fevers Eyes: absent: Vision Changes Respiratory: absent: Cough, Sputum Cardiovascular: Calf Pain (bilateral chronic) Gastrointestinal: Constipation, Nausea. absent: Abdominal Pain, Diarrhea, Vomiting, Anorexia Musculoskeletal: Normal Skin: Normal Neurological: Focal Weakness. absent: Headache, Dizziness Endocrine: Normal Hemo/Lymphatic: Normal Psychiatric: Normal Physical Exam Vital Signs Reviewed: Yes Vital Signs Temp Pulse Resp BP Pulse Ox 03/16/18 05:14 97.9 F 56 L 18 114/62 99 03/16/18 04:58 97.9 F 56 L 18 114/62 99 03/16/18 02:58 52 L 18 108/58 L 100 03/16/18 01:38 18 03/16/18 01:09 97.8 F 54 L 16 110/56 L 99 Temperature: Afebrile Blood Pressure: Normal Pulse: Regular Respiratory Rate: Normal Appearance: Positive for: Well-Appearing, Non-Toxic, Comfortable Pain Distress: None Mental Status: Positive for: Alert and Oriented X 3 - Systems Exam Head: Present: Atraumatic, Normocephalic Pupils: Present: PERRL Extroacular Muscles: Present: EOMI Conjunctiva: Present: Normal, Icteric Mouth: Present: Moist Mucous Membranes Respiratory/Chest: Present: Clear to Auscultation. No: Wheezes, Rhonchi Cardiovascular: Present: Regular Rate and Rhythm, Normal S1, S2 Abdomen: Present: Normal Bowel Sounds. No: Tenderness, Distention Upper Extremity: Present: Normal Inspection. No: Edema Lower Extremity: Present: Normal Inspection, CALF TENDERNESS (bilateral). No: Edema Neurological: Present: GCS=15, CN II-XII Intact, Speech Normal Skin: Present: Warm. No: Normal Color (jaundiced) Psychiatric: Present: Alert, Oriented x 3, Normal Insight, Normal Concentration Medical Decision Making ED Course and Treatment: 03/16/18 02:32 CBC, CMP, Trop, CT head, CXR EKG: NSR 03/16/18 03:33 CT FINDINGS: Brain: Mild cerebral and cerebellar volume loss. Minimal hypodensity is seen in the periventricular cerebral white matter. Physiologic left basal ganglia calcification. No hemorrhage. Ventricles: Unremarkable. No ventriculomegaly. Bones/joints: Unremarkable. No acute fracture. Soft tissues: Unremarkable. Sinuses: Right sphenoid sinus disease. Mastoid air cells: Possible left mastoid disease. Orbits: The globe and lens are intact. IMPRESSION: No evidence of an acute intracranial hemorrhage, midline shift or mass effect is identified.Changes of an acute infarct may not be visible on CT for up to 24 to 48 hours. If this is of clinical concern, a follow up examination and/or MRI may be of benefit. Discussed case with Dr. Marinelli who accepts the patient to hospitalist service. Patient to receive 2 units PRBCs - Lab Interpretations Lab Results: 03/16/18 02:20 03/16/18 03:00 Lab Results 03/16/18 03:47: Blood Type Pending, Antibody Screen Pending, BBK History Checked No verified bt 03/16/18 03:00: Sodium 146, Potassium 3.8, Chloride 106, Carbon Dioxide 25, Anion Gap 19, BUN 21, Creatinine 1.0, Est GFR ( Amer) > 60, Est GFR (Non- Af Amer) 57, Random Glucose 105, Calcium 9.6, Total Bilirubin 2.0 H, AST 35, ALT 41, Alkaline Phosphatase 59, Troponin I < 0.01, Total Protein 8.5 H, Albumin 4.3, Globulin 4.2, Albumin/Globulin Ratio 1.0 L 03/16/18 02:20: Direct Bilirubin 0.5 H, Lactate Dehydrogenase 614 03/16/18 02:20: WBC 4.9, RBC 2.11 L, Hgb 7.5 L D, Hct 24.0 L, MCV 113.7 H D, MCH 35.5 H, MCHC 31.3, RDW 13.5, Plt Count 238, MPV 10.1, Gran % 57.1, Lymph % ( Auto) 35.8 H, Cole % (Auto) 5.3, Eos % (Auto) 1.4 L, Baso % (Auto) 0.4, Gran # 2.79, Lymph # (Auto) 1.8, Cole # (Auto) 0.3, Eos # (Auto) 0.1, Baso # (Auto) 0.02 I have reviewed the lab results: Yes Interpretation: Abnormal lab values - RAD Interpretation Radiology Orders: 03/16/18 01:27 HEAD W/O CONTRAST [CT] Stat 03/16/18 01:30 CHEST TWO VIEWS (PA/LAT) [RAD] Stat - EKG Interpretation Interpreted by ED Physician: Yes Type: 12 lead EKG - Medication Orders Current Medication Orders: Albuterol/Ipratropium (Duoneb 3 Mg/0.5 Mg (3 Ml) Ud) 3 ml IH Q2H PRN PRN Reason: Shortness of Breath Lisinopril (Zestril) 10 mg PO DAILY SAMARA Ondansetron HCl (Zofran Odt) 4 mg PO Q8H PRN PRN Reason: Nausea/Vomiting Pantoprazole Sodium (Protonix Ec Tab) 40 mg PO 0600 SAMARA Last Admin: 03/16/18 06:31 Dose: 40 mg Discontinued Medications Acetaminophen (Tylenol 325mg Tab) 650 mg PO STAT STA Stop: 03/16/18 05:22 Last Admin: 03/16/18 06:31 Dose: 650 mg MAR Pain/Vitals Document 03/16/18 06:31 BK (Rec: 03/16/18 06:31 [email or web address] [id number]) Presence of Pain Presence of Pain Yes Location Pain Location Body Site Ankle Sodium Chloride (Sodium Chloride 0.9%) 1,000 mls @ 999 mls/hr IV .Q1H1M STA Stop: 03/16/18 02:38 Last Admin: 03/16/18 03:24 Dose: 999 mls/hr eMAR Start Stop Document 03/16/18 03:24 LEXI (Rec: 03/16/18 03:24 [id number] [id number]) Intravenous Solution Start Date 03/16/18 Start Time 03:24 End Date 03/16/18 End time 04:24 Total Infusion Time 60 Disposition/Present on Arrival - Present on Arrival Any Indicators Present on Arrival: No History of DVT/PE: No History of Uncontrolled Diabetes: No Urinary Catheter: No History of Decub. Ulcer: No History Surgical Site Infection Following: None - Disposition Have Diagnosis and Disposition been Completed?: Yes Diagnosis: Hemolytic anemia Disposition: HOSPITALIZED Disposition Time: 04:30 Patient Plan: Discharge Patient Problems: Current Active Problems Problem Status Onset Hemolytic anemia Acute Condition: GUARDED
[2018-03-16 02:57] LABS: BASO # 0.02 K/mm3 (0.0-2.0); BASO % 0.4 % (0.0-3.0); EOS # 0.1 (0.0-0.7); EOS % 1.4 % (1.5-5.0); GRAN # 2.79 (1.4-6.5); GRAN % 57.1 % (50.0-68.0); HEMOGLOBIN 7.5 g/dL (12.0-16.0); LYMPH # 1.8 (1.2-3.4); LYMPH % 35.8 % (22.0-35.0); MEAN CELL VOLUME 113.7 fl (80.0-105.0); MEAN CORPUSCULAR HEMOGLOBIN 35.5 pg (25.0-35.0); MEAN CORPUSCULAR HGB CONC 31.3 g/dl (31.0-37.0); MEAN PLATELET VOLUME 10.1 fl (7.0-11.0); MONO # 0.3 (0.1-0.6); MONO % 5.3 % (1.0-6.0); RBC 2.11 10^6/uL (3.5-6.1); RED CELL DISTRIBUTION WIDTH 13.5 % (11.5-14.5); WHITE BLOOD COUNT 4.9 10^3/ul (4.5-11.0)
--- NOTE | 2018-03-16 03:02 | CT ---
EXAM: CT Head Without Intravenous Contrast CLINICAL HISTORY: 58 years old, female; Signs and symptoms; Weakness, extremity TECHNIQUE: Axial computed tomography images of the head/brain without intravenous contrast. All CT scans at this facility use one or more dose reduction techniques, viz.: automated exposure control; ma/kV adjustment per patient size (including targeted exams where dose is matched to indication; i.e. head); or iterative reconstruction technique. 330 images are submitted. Axial images are submitted in brain and bone windows. Coronal and sagittal reformatted images were created and reviewed. Axial reformatted images were created and reviewed. COMPARISON: No relevant prior studies available. FINDINGS: Brain: Mild cerebral and cerebellar volume loss. Minimal hypodensity is seen in the periventricular cerebral white matter. Physiologic left basal ganglia calcification. No hemorrhage. Ventricles: Unremarkable. No ventriculomegaly. Bones/joints: Unremarkable. No acute fracture. Soft tissues: Unremarkable. Sinuses: Right sphenoid sinus disease. Mastoid air cells: Possible left mastoid disease. Orbits: The globe and lens are intact. IMPRESSION: No evidence of an acute intracranial hemorrhage, midline shift or mass effect is identified.Changes of an acute infarct may not be visible on CT for up to 24 to 48 hours. If this is of clinical concern, a follow up examination and/or MRI may be of benefit.
[2018-03-16 03:22] LABS: ALBUMIN 4.3 g/dL (3.0-4.8); ALT/SGPT 41 U/L (7-56); AST/SGOT 35 U/L (14-36); BLOOD UREA NITROGEN 21 mg/dL (7-21); CALCIUM 9.6 mg/dL (8.4-10.5); GFR AFRICAN-AMERICAN > 60; GFR NON-AFRICAN AMERICAN 57
[2018-03-16 04:10] LABS: BILIRUBIN,DIRECT 0.5 mg/dL (0.0-0.4)
[2018-03-16 04:19] LABS: TROPONIN I < 0.01 ng/mL
--- NOTE | 2018-03-16 05:40 | CP.PCM.HP ---
<Vidal Garcia - Last Filed: 03/16/18 05:54> History of Present Illness - History of Present Illness History of Present Illness: Mrs. Villegas is a 58 year old Guamanian female with a past medical history significant for hemolytic anemia and HTN who presents with one week of shortness of breath. Patient speaks primarily welsh and daughters were at bedside to provide translation. She reports that the shortness of breath started one week ago while at rest and has been intermittent since that time. She endorses having this shortness of breath in the past and that is usually correlated with her hemoglobin being low. Her shortness of breath worsened yesterday, also while at rest, and given its correlation with her anemia she decided she needed further evaluation. She also endorses that she has had painful leg swelling with intermittent bruising over the course of past few days as well. She denies any trauma to the area or ever experiencing this in the past. She endorses mild epigastic pain, nausea without vomiting, constipation but denies any fevers, chills, headache, rhinorrhea, sore throat, chest pain, palpitations, cough, wheezing, sputum production, hemoptysis, diarrhea, melena, hematochezia, changes in urine output, hematuria, skin lesions , or any numbness/tingling/weakness of any extremity. She was first diagnosed with hemolytic anemia in 2014 after she presented with similar symptoms at [facility] and was found to have a hemoglobin of 3. She reports that, after initial blood transfusions were ineffective, she was treated with several months of a PO steroid taper and chemotherapy. Patient reports that she does not recall the name of the chemotherapeutic agent but that it was dosed once weekly and she received treatment three times. She denies ever having any diagnosis of malignancy or having a bone marrow biopsy done since the time of her diagnosis. Since that time she has had routine CBC's done and has received several blood transfusions since the time of her diagnosis , all of which have been without any adverse reactions. PMH: As stated above PSH: Denies Family History: No history of any hematologic disorders Social History: Denies tobacco, alcohol or illicit drug abuse now or in the past ; Lives in [place] but visits family in the [place] for several months out of the year. She is due to return to [place] in one to two months; Denies history of occupational exposure Allergies: NKDA Home Medications: Lisinopril 10mg PO daily Present on Admission - Present on Admission Any Indicators Present on Admission: No Review of Systems - Review of Systems Review of Systems: As stated in HPI, otherwise negative Past Patient History - Infectious Disease Hx of Infectious Diseases: None - Tetanus Immunizations Tetanus Immunization: Unknown - Past Social History Smoking Status: Smoker Currrent Status Unknown - CARDIAC Hx Hypertension: Yes - PULMONARY Hx Respiratory Disorders: No - NEUROLOGICAL Hx Neurological Disorder: No - HEENT Hx HEENT Problems: No - RENAL Hx Chronic Kidney Disease: No - ENDOCRINE/METABOLIC Hx Endocrine Disorders: No - HEMATOLOGICAL/ONCOLOGICAL Hx Anemia: Yes - INTEGUMENTARY Hx Dermatological Problems: No - MUSCULOSKELETAL/RHEUMATOLOGICAL Hx Musculoskeletal Disorders: No Hx Falls: No - GASTROINTESTINAL Hx Gastrointestinal Disorders: No - GENITOURINARY/GYNECOLOGICAL Hx Genitourinary Disorders: No - PSYCHIATRIC Hx Psychophysiologic Disorder: No Hx Substance Use: No - SURGICAL HISTORY Hx Surgeries: No Meds Allergies/Adverse Reactions: Allergies Allergy/AdvReac Type Severity Reaction Status Date / Time No Known Allergies Allergy Verified 03/16/18 01:03 Physical Exam - Constitutional Appears: Non-toxic, No Acute Distress - Head Exam Head Exam: ATRAUMATIC, NORMOCEPHALIC - Eye Exam Eye Exam: EOMI, PERRL, Scleral icterus. absent: Conjunctival injection, Normal appearance, Nystagmus, Periorbital swelling, Periorbital tenderness Pupil Exam: NORMAL ACCOMODATION, PERRL. absent: Fixed, Irregular, Miosis, Mydriatic, Unequal - ENT Exam ENT Exam: Mucous Membranes Dry - Neck Exam Neck exam: Positive for: Full Rom, Normal Inspection. Negative for: Lymphadenopathy, Meningismus, Tenderness, Thyromegaly - Respiratory Exam Respiratory Exam: Clear to Auscultation Bilateral, NORMAL BREATHING PATTERN. absent: Accessory Muscle Use, Chest Wall Tenderness, Decreased Breath Sounds, Prolonged Expiratory Phase, Rales, Rhonchi, Wheezes, Respiratory Distress, Stridor - Cardiovascular Exam Cardiovascular Exam: REGULAR RHYTHM, RRR, +S1, +S2. absent: Bradycardia, Tachycardia, Clicks, Diastolic murmur, Gallop, Irregular Rhythm, JVD, Rubs, +S4 , Systolic Murmur - GI/Abdominal Exam GI & Abdominal Exam: Normal Bowel Sounds, Soft, Tenderness (Mild TTP in epigastric region). absent: Bruit, Diminished Bowel Sounds, Distended, Firm, Guarding, Hernia, Hyperactive Bowel Sounds, Hypoactive Bowel Sounds, Mass, Organomegaly, Pulsatile Mass, Rebound, Rigid - Extremities Exam Extremities exam: Positive for: calf tenderness, full ROM, normal capillary refill, pedal edema (Non-pitting edema to bilateral ankles extending to mid calf ), pedal pulses present. Negative for: joint swelling, normal inspection, tenderness - Back Exam Back exam: absent: CVA tenderness (L), CVA tenderness (R) - Neurological Exam Neurological exam: Alert, CN II-XII Intact, Oriented x3 - Psychiatric Exam Psychiatric exam: Normal Affect, Normal Mood - Skin Skin Exam: Dry, Intact, Warm Additional comments: Jaundice Results - Vital Signs Recent Vital Signs: Last Vital Signs Temp 97.9 F 03/16/18 04:58 Pulse 56 L 03/16/18 04:58 Resp 18 03/16/18 04:58 BP 114/62 03/16/18 04:58 Pulse Ox 99 03/16/18 04:58 - Labs Result Diagrams: 03/16/18 02:20 03/16/18 03:00 Assessment & Plan - Assessment and Plan (Free Text) Assessment: 58 year old Guamanian female with a past medical history significant for hemolytic anemia and HTN who presents with one week of shortness of breath. Her hemoglobin was found to be 7.5 with a large macrocytosis and elevated bilirubin. She will be transfused two units of pRBC's and will undergo workup for hemolytic anemia, including hematology consultation. Plan: 1. Symptomatic Macrocytic Anemia -CT Head negative for any acute hemorrhage or infarction -Chest X-Ray pending official radiologist interpretation -Hemoglobin/Hematocrit was 7.5/24.0 with platelets and WBCs within normal limits -MCV elevated at 113.7 -FOBT negative in ED -Protein Electropheresis, Iron, TIBC, Ferritin, Transferrin, Lead, B12, Folate, Haptoglobin, LDH, Reticulocyte Count, TSH/T3/T4, HIV, and Hepatitis Panel all pending -Two units of pRBC's to be transfused -Q6 CBC's post transfusion -Hematology consulted, all recommendations appreciated 2. Lower Extremity Edema -Venous Doppler US of bilateral lower extremity pending 3. History of HTN -Continue home Lisinopril GI Prophylaxis: Protonix DVT Prophylaxis: Chemoprophylaxis currently not indicated; SCDs to be placed if DVT study is negative Diet: Heart Healthy Patient seen and case discussed with attending, Dr. Marinelli. Mily PGY1 - Date & Time Date: 03/16/18 Time: 06:00 Decision To Admit - Pt Status Changed To: Hospital Disposition Of: Inpatient Admission - Admit Certification Admit to Inpatient:: After my assessment, the patient will require hospitalization for at least two midnights. This is because of the severity of symptoms shown, intensity of services needed, and/or the medical risk in this patient being treated as an outpatient. - . Bed Request Type: Telemetry <Francheska Marinelli - Last Filed: 03/16/18 06:59> Results - Vital Signs Recent Vital Signs: Last Vital Signs Temp 98.1 F 03/16/18 06:08 Pulse 58 L 03/16/18 06:08 Resp 18 03/16/18 06:08 BP 100/57 L 03/16/18 06:08 Pulse Ox 99 03/16/18 05:14 - Labs Result Diagrams: 03/16/18 02:20 03/16/18 03:00 Attending/Attestation - Attestation I have personally seen and examined this patient.: Yes I have fully participated in the care of the patient.: Yes I have reviewed all pertinent clinical information: Yes Notes (Text): 03/16/18 06:58 Agree with documentation and orders placed.
[2018-03-16] MEDS ORDERED: Pantoprazole 40 mg EC Tab PO SCH (06:00)
[2018-03-16] MEDS ORDERED: Albuterol-Ipratrop 3 mg / 0.5 (3 ml) UD IH PRN (06:14)
[2018-03-16 07:10] LABS: URINE BILIRUBIN NEGATIVE (NEGATIVE); URINE BLOOD NEGATIVE (NEGATIVE); URINE GLUCOSE (UA) NEGATIVE (NEGATIVE); URINE LEUKOCYTE ESTERASE TRACE Leu/uL (NEGATIVE); URINE PROTEIN NEGATIVE mg/dL (<30 mg/dL); URINE UROBILINOGEN 0.2 E.U./dL (<1 E.U./dL)
[2018-03-16 07:11] LABS: BASO # 0.03 K/mm3 (0.0-2.0); BASO % 0.8 % (0.0-3.0); EOS # 0.1 (0.0-0.7); EOS % 1.6 % (1.5-5.0); GRAN # 2.16 (1.4-6.5); GRAN % 55.7 % (50.0-68.0); LYMPH # 1.4 (1.2-3.4); LYMPH % 35.4 % (22.0-35.0); MEAN CELL VOLUME 114.1 fl (80.0-105.0); MEAN CORPUSCULAR HEMOGLOBIN 35.4 pg (25.0-35.0); MEAN PLATELET VOLUME 10.4 fl (7.0-11.0); MONO # 0.3 (0.1-0.6); MONO % 6.5 % (1.0-6.0); PLATELET COUNT 223 10^3/uL (120.0-450.0); RBC 1.98 10^6/uL (3.5-6.1); RED CELL DISTRIBUTION WIDTH 13.6 % (11.5-14.5); WHITE BLOOD COUNT 3.9 10^3/ul (4.5-11.0)
[2018-03-16 07:39] LABS: URINE COLOR YELLOW (YELLOW)
[2018-03-16 07:39] LABS: FREE T4 1.01 ng/dL (0.78-2.19); T4 7.5 ug/dL (5.5-11.0)
[2018-03-16 07:40] LABS: IRON 190 ug/dL (45-180)
[2018-03-16 07:40] LABS: URINE APPEARANCE CLEAR (CLEAR)
[2018-03-16 07:43] LABS: ALBUMIN 3.9 g/dL (3.0-4.8); ALT/SGPT 31 U/L (7-56); AST/SGOT 34 U/L (14-36); BLOOD UREA NITROGEN 19 mg/dL (7-21); CALCIUM 8.2 mg/dL (8.4-10.5); GFR AFRICAN-AMERICAN > 60; GFR NON-AFRICAN AMERICAN > 60
[2018-03-16 07:45] LABS: URINE BACTERIA FEW (NEG); URINE RBC 0 - 2 /hpf (0-2)
[2018-03-16 07:49] LABS: % IRON SATURATION 71 % (20-55); TOTAL IRON BINDING CAPACITY 270 ug/dL (265-497)
[2018-03-16 07:52] LABS: T3 1.12 ng/mL (0.97-1.69)
--- NOTE | 2018-03-16 08:33 | RAD ---
HISTORY: Shortness of breath. COMPARISON: 06/04/2017. TECHNIQUE: Chest PA and lateral FINDINGS: LUNGS: No active pulmonary disease. PLEURA: No significant pleural effusion identified. No pneumothorax apparent. CARDIOVASCULAR: Normal. OSSEOUS STRUCTURES: No significant abnormalities. VISUALIZED UPPER ABDOMEN: Normal. OTHER FINDINGS: None. IMPRESSION: No active disease. No significant interval change compared to the prior examination(s).
[2018-03-16] MEDS ORDERED: MethylPREDNISolone 40 mg Vial IVP SCH (10:00)
--- NOTE | 2018-03-16 10:50 | US ---
HISTORY: rule out splenomegaly COMPARISON: None. TECHNIQUE: Sonographic evaluation of the abdomen. FINDINGS: LIVER: Measures 15 cm. Increased echogenicity of the liver parenchyma. No mass. No intrahepatic bile duct dilatation. GALLBLADDER: Unremarkable. No gallstones. COMMON BILE DUCT: Measures 6 mm. No stones. No dilatation. PANCREAS: Unremarkable as visualized. No mass. No ductal dilatation. RIGHT KIDNEY: Measures 10.8 x 3.6 x 4.8cm. Normal echogenicity. No calculus, mass, or hydronephrosis. LEFT KIDNEY: Measures 11.2 x 4.6 x 5.0cm. Normal echogenicity. No calculus, mass, or hydronephrosis. SPLEEN: Normal in size and contour. No mass. 11.8 x 6.7 x 7.1 AORTA: No aneurysmal dilatation. IVC: Unremarkable. OTHER FINDINGS: None. IMPRESSION: Fatty infiltration of the liver. No acute findings
[2018-03-16] MEDS: Pantoprazole 40mg/100mL NS 40 MG/100 ML BAG IVPB SCH ×3 (11:36→20:47)
[2018-03-16 11:52] LABS: BASO # 0.01 K/mm3 (0.0-2.0); BASO % 0.2 % (0.0-3.0); EOS # 0.1 (0.0-0.7); EOS % 1.5 % (1.5-5.0); GRAN # 2.73 (1.4-6.5); GRAN % 56.8 % (50.0-68.0); HEMOGLOBIN 7.2 g/dL (12.0-16.0); LYMPH # 1.8 (1.2-3.4); LYMPH % 36.7 % (22.0-35.0); MEAN CELL VOLUME 114.1 fl (80.0-105.0); MEAN CORPUSCULAR HEMOGLOBIN 36.4 pg (25.0-35.0); MEAN CORPUSCULAR HGB CONC 31.9 g/dl (31.0-37.0); MEAN PLATELET VOLUME 9.5 fl (7.0-11.0); MONO # 0.2 (0.1-0.6); MONO % 4.8 % (1.0-6.0); RBC 1.98 10^6/uL (3.5-6.1); RED CELL DISTRIBUTION WIDTH 13.5 % (11.5-14.5); WHITE BLOOD COUNT 4.8 10^3/ul (4.5-11.0)
--- NOTE | 2018-03-16 11:57 | CP.PCM.PN ---
Objective - Vital Signs/Intake and Output Vital Signs (last 24 hours): Temp Pulse Resp BP Pulse Ox 97 F L 73 18 98/63 L 99 03/16/18 11:33 03/16/18 11:33 03/16/18 11:33 03/16/18 11:33 03/16/18 05:14 - Medications Medications: Current Medications Albuterol/Ipratropium (Duoneb 3 Mg/0.5 Mg (3 Ml) Ud) 3 ml IH Q2H PRN PRN Reason: Shortness of Breath Folic Acid (Folic Acid) 1 mg PO DAILY [facility] Last Admin: 03/16/18 11:20 Dose: 1 mg Pantoprazole Sodium (Protonix 40mg Ivpb) 40 mg in 100 mls @ 20 mls/hr IVPB .Q5H [facility] Last Admin: 03/16/18 11:36 Dose: 20 mls/hr Lisinopril (Zestril) 10 mg PO DAILY [facility] Last Admin: 03/16/18 11:20 Dose: 10 mg Methylprednisolone (Solu-Medrol) 100 mg IVP TID [facility] Ondansetron HCl (Zofran Odt) 4 mg PO Q8H PRN PRN Reason: Nausea/Vomiting Thiamine HCl (Vitamin B1 Tab) 100 mg PO DAILY [facility] - Labs Labs: 03/16/18 11:35 03/16/18 06:00
[2018-03-16 12:03] LABS: TRANSFERRIN 181.54 mg/dL (206-381)
[2018-03-16 15:53] LABS: BASO # 0.01 K/mm3 (0.0-2.0); BASO % 0.2 % (0.0-3.0); EOS % 0.2 % (1.5-5.0); GRAN # 5.18 (1.4-6.5); GRAN % 85.6 % (50.0-68.0); HEMOGLOBIN 7.8 g/dL (12.0-16.0); LYMPH # 0.8 (1.2-3.4); LYMPH % 13.2 % (22.0-35.0); MEAN CELL VOLUME 114.5 fl (80.0-105.0); MEAN CORPUSCULAR HEMOGLOBIN 35.5 pg (25.0-35.0); MONO # 0.1 (0.1-0.6); MONO % 0.8 % (1.0-6.0); RBC 2.2 10^6/uL (3.5-6.1); RED CELL DISTRIBUTION WIDTH 13.4 % (11.5-14.5); WHITE BLOOD COUNT 6.1 10^3/ul (4.5-11.0)
[2018-03-16 16:43] LABS: HEPATITIS B SURFACE AG Negative (NEGATIVE)
[2018-03-16 16:49] LABS: HEPATITIS A IGM NEGATIVE (NEGATIVE); HEPATITIS B CORE AB NEGATIVE (NEGATIVE)
[2018-03-16 17:02] LABS: HEPATITIS C ANTIBODY NEGATIVE (NEGATIVE)
[2018-03-16 17:17] LABS: FOLATE 18.5 ng/mL
--- NOTE | 2018-03-16 19:02 | CARD ---
APPROVED REPORT EKG Measurement Heart [id number] <Conclusion> Sinus bradycardia Otherwise normal ECG
[2018-03-16 19:58] LABS: GRAN # 4.22 (1.4-6.5); GRAN % 87.2 % (50.0-68.0); HEMOGLOBIN 7.6 g/dL (12.0-16.0); LYMPH # 0.6 (1.2-3.4); LYMPH % 12.4 % (22.0-35.0); MEAN CELL VOLUME 114.3 fl (80.0-105.0); MEAN CORPUSCULAR HGB CONC 30.6 g/dl (31.0-37.0); MEAN PLATELET VOLUME 10.5 fl (7.0-11.0); MONO % 0.4 % (1.0-6.0); RBC 2.17 10^6/uL (3.5-6.1); RED CELL DISTRIBUTION WIDTH 13.3 % (11.5-14.5); WHITE BLOOD COUNT 4.8 10^3/ul (4.5-11.0)
--- NOTE | 2018-03-16 20:15 | US ---
HISTORY: Leg pain and swelling. Evaluate for DVT PHYSICIAN(S): David Holman MD. TECHNIQUE: Duplex sonography and color-flow Doppler with graded compression were used to evaluate the deep venous systems of both lower extremities. FINDINGS: The visualized deep venous systems of both lower extremities are sonographically normal and compressible. Normal wave forms and augmentation are seen. There is no sonographic evidence for deep venous thrombosis in the visualized segments of both lower extremities. IMPRESSION: No sonographic evidence for deep venous thrombosis in the visualized segments of both lower extremities.
[2018-03-17 00:10] LABS: GRAN # 5.04 (1.4-6.5); GRAN % 85.3 % (50.0-68.0); HEMOGLOBIN 7.4 g/dL (12.0-16.0); LYMPH # 0.9 (1.2-3.4); LYMPH % 14.4 % (22.0-35.0); MEAN CELL VOLUME 114.7 fl (80.0-105.0); MEAN CORPUSCULAR HEMOGLOBIN 35.1 pg (25.0-35.0); MEAN CORPUSCULAR HGB CONC 30.6 g/dl (31.0-37.0); MEAN PLATELET VOLUME 10.6 fl (7.0-11.0); MONO % 0.3 % (1.0-6.0); RBC 2.11 10^6/uL (3.5-6.1); RED CELL DISTRIBUTION WIDTH 13.3 % (11.5-14.5); WHITE BLOOD COUNT 5.9 10^3/ul (4.5-11.0)
[2018-03-17] MEDS: Pantoprazole 40mg/100mL NS 40 MG/100 ML BAG IVPB SCH ×5 (01:57→22:59)
[2018-03-17 08:25] LABS: ALB/GLOB RATIO 1.1 (1.1-1.8); ALBUMIN 4.1 g/dL (3.0-4.8); ALT/SGPT 53 U/L (7-56); AST/SGOT 38 U/L (14-36); BLOOD UREA NITROGEN 18 mg/dL (7-21); CALCIUM 8.8 mg/dL (8.4-10.5); GFR AFRICAN-AMERICAN > 60; GFR NON-AFRICAN AMERICAN 57
[2018-03-17 10:56] LABS: GRAN # 10.19 (1.4-6.5); GRAN % 87.7 % (50.0-68.0); HEMOGLOBIN 7.1 g/dL (12.0-16.0); LYMPH # 1.1 (1.2-3.4); LYMPH % 9.8 % (22.0-35.0); MEAN CELL VOLUME 116.3 fl (80.0-105.0); MEAN CORPUSCULAR HEMOGLOBIN 36.2 pg (25.0-35.0); MEAN CORPUSCULAR HGB CONC 31.1 g/dl (31.0-37.0); MEAN PLATELET VOLUME 10.9 fl (7.0-11.0); MONO # 0.3 (0.1-0.6); MONO % 2.5 % (1.0-6.0); RBC 1.96 10^6/uL (3.5-6.1); RED CELL DISTRIBUTION WIDTH 13.5 % (11.5-14.5); WHITE BLOOD COUNT 11.6 10^3/ul (4.5-11.0)
--- NOTE | 2018-03-17 11:23 | CP.PCM.PN ---
<Jj Vance - Last Filed: 03/17/18 11:23> Subjective - Date & Time of Evaluation Date of Evaluation: 03/17/18 Time of Evaluation: 06:00 - Subjective Subjective: Patient seen and evaluated bedside. No acute issues overnight. Patient states her throat hurts while swallowing and says she has some abdominal pain. Patient denies chest pain, SOB, nausea, vomiting, fever, chills, or any other complaints at this time. Objective - Vital Signs/Intake and Output Vital Signs (last 24 hours): Temp Pulse Resp BP Pulse Ox 98.2 F 50 L 18 97/54 L 100 03/17/18 06:00 03/17/18 10:04 03/17/18 06:00 03/17/18 10:04 03/17/18 06:00 Intake and Output: 03/17/18 03/17/18 06:59 18:59 Intake Total 260 Balance 260 - Medications Medications: Current Medications Albuterol/Ipratropium (Duoneb 3 Mg/0.5 Mg (3 Ml) Ud) 3 ml IH Q2H PRN PRN Reason: Shortness of Breath Folic Acid (Folic Acid) 1 mg PO DAILY [facility] Last Admin: 03/17/18 10:23 Dose: 1 mg Pantoprazole Sodium (Protonix 40mg Ivpb) 40 mg in 100 mls @ 20 mls/hr IVPB .Q5H [facility] Last Admin: 03/17/18 07:37 Dose: 20 mls/hr Lisinopril (Zestril) 10 mg PO DAILY [facility] Last Admin: 03/17/18 10:04 Dose: Not Given Methylprednisolone (Solu-Medrol) 100 mg IVP TID [facility] Last Admin: 03/17/18 10:23 Dose: 100 mg Ondansetron HCl (Zofran Odt) 4 mg PO Q8H PRN PRN Reason: Nausea/Vomiting Thiamine HCl (Vitamin B1 Tab) 100 mg PO DAILY [facility] Last Admin: 03/17/18 10:23 Dose: 100 mg - Labs Labs: 03/17/18 10:45 03/17/18 07:30 - Constitutional Appears: Non-toxic, No Acute Distress - Head Exam Head Exam: ATRAUMATIC, NORMAL INSPECTION, NORMOCEPHALIC - Eye Exam Eye Exam: EOMI, Normal appearance - ENT Exam ENT Exam: Mucous Membranes Moist - Respiratory Exam Respiratory Exam: Clear to Ausculation Bilateral, NORMAL BREATHING PATTERN - Cardiovascular Exam Cardiovascular Exam: REGULAR RHYTHM, +S1, +S2. absent: RRR, Rubs - GI/Abdominal Exam GI & Abdominal Exam: Soft, Tenderness - Extremities Exam Extremities Exam: absent: Pedal Edema, Tenderness - Neurological Exam Neurological Exam: Alert, Awake, Oriented x3 Assessment and Plan - Assessment and Plan (Free Text) Assessment: 58 year old [place]aur[place] female with a past medical history significant for hemolytic anemia and HTN who presents with one week of shortness of breath. Her hemoglobin was found to be 7.5 with a large macrocytosis and elevated bilirubin. She is being worked up for anemia. Plan: 1. Symptomatic Macrocytic Anemia -CT Head negative for any acute hemorrhage or infarction -Chest X-Ray negative -Hemoglobin 7.1 -MCV elevated at 116.3 -FOBT negative in ED -solumderol 100mg TID -GI consulted, par[place], follow recs -protonix drip -pRBC's to be transfused if Hgb dops -Hematology consulted, all recommendations appreciated -Bili 2.0, direct .5 -HIV negative -LDH not eleavted -Iron level high, B12 and folate normal -flow cytometry pending -direct and indirect robert penidng -Thyroid function WNL -peripheral smear showing macrocytic RBCS with anisocytosis, no schistocytes, no nucleated RBCs -abd US show normal sized spleen -thiamine, folic acid 2. Lower Extremity Edema -Venous Doppler US of bilateral lower extremity negative for DVT 3. History of HTN -Continue home Lisinopril GI Prophylaxis: Protonix DVT Prophylaxis: SCD Diet: Heart Healthy <Leisa Huggins - Last Filed: 03/17/18 15:04> Objective - Vital Signs/Intake and Output Vital Signs (last 24 hours): Temp Pulse Resp BP Pulse Ox 98.6 F 59 L 16 102/69 100 03/17/18 12:00 03/17/18 14:00 03/17/18 12:00 03/17/18 12:00 03/17/18 06:00 Intake and Output: 03/17/18 03/17/18 06:59 18:59 Intake Total 260 Balance 260 - Medications Medications: Current Medications Albuterol/Ipratropium (Duoneb 3 Mg/0.5 Mg (3 Ml) Ud) 3 ml IH Q2H PRN PRN Reason: Shortness of Breath Folic Acid (Folic Acid) 1 mg PO DAILY [facility] Last Admin: 03/17/18 10:23 Dose: 1 mg Pantoprazole Sodium (Protonix 40mg Ivpb) 40 mg in 100 mls @ 20 mls/hr IVPB .Q5H [facility] Last Admin: 03/17/18 13:39 Dose: 20 mls/hr Lisinopril (Zestril) 10 mg PO DAILY [facility] Last Admin: 03/17/18 10:04 Dose: Not Given Methylprednisolone (Solu-Medrol) 100 mg IVP TID [facility] Last Admin: 03/17/18 13:55 Dose: 100 mg Ondansetron HCl (Zofran Odt) 4 mg PO Q8H PRN PRN Reason: Nausea/Vomiting Thiamine HCl (Vitamin B1 Tab) 100 mg PO DAILY [facility] Last Admin: 03/17/18 10:23 Dose: 100 mg - Labs Labs: 03/17/18 10:45 03/17/18 07:30 Attending/Attestation - Attestation I have personally seen and examined this patient.: Yes I have fully participated in the care of the patient.: Yes I have reviewed all pertinent clinical information, including history, physical exam and plan: Yes Notes (Text): 03/17/18 15:02 58 year old female with past medical history of hemolytic anemia and hypertension wh presented with symptomatic anemia. Hematology and GI evaluation are requested. She is on iv steroids. CT abd/ pelvis is ordered. She complained of lower extremity edema. LE dopplers are negative for DVT. Continue with lisinopril for hypertension. Leisa Huggins MD Hospitalist.
[2018-03-17] MEDS ORDERED: Iohexol 240 (50 ml) ONE (12:51)
--- NOTE | 2018-03-17 17:03 | CON ---
DATE: 03/17/2018 CONSULTATION GASTROLOGY REQUESTING PHYSICIAN: Dr. Huggins. REASON FOR CONSULT: I have been asked to see this 58-year-old Welsh female with a history of hemolytic anemia, hypertension, who comes to the hospital with several days of generalized weakness and shortness of breath. The patient states that she was diagnosed with autoimmune hemolytic anemia 3 years ago in [facility] and was treated with prednisone for several months. The patient states that her hemoglobin was stable after several months and has not had any followup since then. The patient admits to some mild epigastric pain. No nausea. No vomiting. No rectal bleeding, melena, hematemesis. Routine blood work in the emergency room revealed the hemoglobin in the 7 g range. PAST MEDICAL HISTORY: Notable for autoimmune hemolytic anemia, hypertension. SOCIAL HISTORY: She denies cigarette smoking or alcohol use. FAMILY HISTORY: Noncontributory. REVIEW OF SYSTEMS: Fourteen-point review of systems is notable for generalized weakness and shortness of breath. PHYSICAL EXAMINATION: GENERAL: Middle-aged female, lying in bed, appearing pale, in no acute distress. VITAL SIGNS: Reveal temperature of 98.2, blood pressure 97/54, heart rate of 50. HEENT: Reveals sclerae to be white. Conjunctivae pale. NECK: Supple. CHEST: Reveals lungs to be clear. HEART: Reveals regular rate and rhythm. ABDOMEN: Soft. Mild epigastric tenderness. No rebound or guarding. EXTREMITIES: Show no edema. LABORATORY DATA: Reveal white blood cell count of 11.6, hemoglobin 7.1, haptoglobin less than 20, reticulocyte count is 12.95. Iron saturation is 71%. Total bilirubin is 2. AST, ALT, alk phos were all normal. IMPRESSION: A 58-year-old female with recurrent or autoimmune hemolytic anemia. Etiology of the abdominal pain is unclear. An abdominal ultrasound was negative for gallstones or other acute abnormalities. RECOMMENDATIONS: 1. Continue steroids. 2. Hematology evaluation. 3. Check stool guaiacs. 4. The patient is to receive 1 unit of packed red blood cells. 5. We will request a CT scan of the abdomen and pelvis. Dimitri Ruggiero MD [facility] # [id number]
--- NOTE | 2018-03-17 18:23 | CT ---
PROCEDURE: CT abdomen pelvis dated 03/17/2018 HISTORY: Anemia. Abdominal pain. Abdominal pain COMPARISON: Correlation made with abdominal ultrasound 03/16/2028 TECHNIQUE: Contiguous axial images of the abdomen and pelvis performed of following oral contrast material. Additional 2 dimensional sagittal and coronal reformats generated. This CT exam was performed using one or more of the following dose reduction techniques: Automated exposure control, adjustment of the mA and/or kV according to patient size, and/or use of iterative reconstruction technique. Total exam DLP = 706.18 mGy-cm. FINDINGS: LOWER THORAX: Heart appears mildly enlarged. No significant pericardial effusion is identified Lung bases are clear. No infiltrate effusion or basilar pneumothorax. There is a small hiatal hernia with slight wall thickening of the distal esophagus likely due to protrusion gastric mucosa. Esophagitis not excluded. LIVER: Liver exhibits relatively normal size measuring approximately 15.5 cm in CC dimension. No obvious hepatic mass collection or calcification. No significant pancreatic ductal dilatation. GALLBLADDER AND BILE DUCTS: Unremarkable. PANCREAS: The pancreas is grossly unremarkable without obvious masses collections as imaged. SPLEEN: Spleen is prominent measuring 12.4 cm in AP dimension. No splenic mass collection or calcification. ADRENALS: Slightly nodular left adrenal gland. KIDNEYS AND URETERS: Kidneys exhibit relatively symmetric size. No evidence of nephrolithiasis or hydronephrosis. No obvious renal mass or collection seen on this noncontrast study. BLADDER: Urinary bladder incompletely distended which may account for thick-walled appearance on. Rule out cystitis. REPRODUCTIVE: Unremarkable. APPENDIX: Normal-appearing appendix BOWEL: Evaluation of the bowel is limited due to incomplete opacification. The stomach is incompletely distended which may in part account for thick-walled appearance. Gastritis (including atrophic gastritis) or other intrinsic/invasive wall lesion not excluded. . Consider followup endoscopy . Visualized loops of small bowel exhibit relatively normal contour and caliber. No evidence of the small bowel obstruction. The large bowel is unopacified. Moderate amount of stool is present within the cecum, at ascending and transverse colon. Most of the descending and sigmoid colon collapsed. PERITONEUM: No free intraperitoneal air. No free or loculated fluid collections. LYMPH NODES: No significant lymphadenopathy VASCULATURE: Unremarkable. No aortic aneurysm. BONES: Multilevel degenerative spondylosis of the thoracic and lumbar spine. No acute compression fractures nor retropulsed fragments. OTHER FINDINGS: None. IMPRESSION: No acute intra abdominal pathology seen on this limited noncontrast CT scan of the abdomen and pelvis. . There is mild wall thickening of the stomach likely due to incomplete distention. Gastritis (including atrophic gastritis) or other intrinsic/invasive wall lesion not excluded. . Consider followup endoscopy Atrophic gastritis
[2018-03-18] MEDS: Pantoprazole 40mg/100mL NS 40 MG/100 ML BAG IVPB SCH ×3 (03:30→14:48)
[2018-03-18 06:47] LABS: GRAN # 12.2 (1.4-6.5); GRAN % 86.7 % (50.0-68.0); HEMOGLOBIN 7.2 g/dL (12.0-16.0); LYMPH # 1.5 (1.2-3.4); LYMPH % 10.7 % (22.0-35.0); MEAN CELL VOLUME 117.5 fl (80.0-105.0); MEAN CORPUSCULAR HGB CONC 30.6 g/dl (31.0-37.0); MEAN PLATELET VOLUME 10.3 fl (7.0-11.0); MONO # 0.4 (0.1-0.6); MONO % 2.6 % (1.0-6.0); RED CELL DISTRIBUTION WIDTH 13.9 % (11.5-14.5); WHITE BLOOD COUNT 14.1 10^3/ul (4.5-11.0)
[2018-03-18 07:32] LABS: ALB/GLOB RATIO 1.1 (1.1-1.8); ALT/SGPT 37 U/L (7-56); AST/SGOT 29 U/L (14-36); BLOOD UREA NITROGEN 21 mg/dL (7-21); CALCIUM 9.2 mg/dL (8.4-10.5); GFR AFRICAN-AMERICAN > 60; GFR NON-AFRICAN AMERICAN > 60
--- NOTE | 2018-03-18 14:14 | CP.PCM.PN ---
<FaizanDavid Conley - Last Filed: 03/18/18 14:08> Subjective - Date & Time of Evaluation Date of Evaluation: 03/18/18 Time of Evaluation: 14:10 - Subjective Subjective: Medicine progress note: Dr. Huggins Patient seen and examined at bedside, states no complaints right now, no acute events overnight. Extensively spoke with patient and her daughter, who stated that patient had a reaction to a blood transfusion she received at a hospital in [facility]; however, patient had 4 blood transfusions in [place], all of which there was no reaction. Patient's daughter further states that the patient has had hemolytic anemia in the past but she does not know the cause - these episodes started in September 2015 in [place]. Objective - Vital Signs/Intake and Output Vital Signs (last 24 hours): Temp Pulse Resp BP Pulse Ox 98 F 73 19 96/49 L 97 03/18/18 12:00 03/18/18 12:00 03/18/18 12:00 03/18/18 12:00 03/18/18 06:00 Intake and Output: 03/18/18 03/18/18 06:59 18:59 Intake Total 600 Balance 600 - Medications Medications: Current Medications Albuterol/Ipratropium (Duoneb 3 Mg/0.5 Mg (3 Ml) Ud) 3 ml IH Q2H PRN PRN Reason: Shortness of Breath Folic Acid (Folic Acid) 1 mg PO DAILY [facility] Last Admin: 03/18/18 09:55 Dose: 1 mg Pantoprazole Sodium (Protonix 40mg Ivpb) 40 mg in 100 mls @ 20 mls/hr IVPB .Q5H [facility] Last Admin: 03/18/18 03:30 Dose: 20 mls/hr Lisinopril (Zestril) 10 mg PO DAILY [facility] Last Admin: 03/18/18 09:55 Dose: 10 mg Methylprednisolone (Solu-Medrol) 100 mg IVP TID [facility] Last Admin: 03/18/18 09:56 Dose: 100 mg Ondansetron HCl (Zofran Odt) 4 mg PO Q8H PRN PRN Reason: Nausea/Vomiting Thiamine HCl (Vitamin B1 Tab) 100 mg PO DAILY [facility] Last Admin: 03/18/18 09:55 Dose: 100 mg - Labs Labs: 03/18/18 06:30 03/18/18 06:30 - Constitutional Appears: Well - Head Exam Head Exam: ATRAUMATIC, NORMAL INSPECTION, NORMOCEPHALIC - Eye Exam Eye Exam: EOMI, Normal appearance, PERRL Pupil Exam: NORMAL ACCOMODATION, PERRL - ENT Exam ENT Exam: Mucous Membranes Moist, Normal Exam - Neck Exam Neck Exam: Full ROM, Normal Inspection. absent: Lymphadenopathy - Respiratory Exam Respiratory Exam: Clear to Ausculation Bilateral, NORMAL BREATHING PATTERN - Cardiovascular Exam Cardiovascular Exam: REGULAR RHYTHM, +S1, +S2. absent: Murmur - GI/Abdominal Exam GI & Abdominal Exam: Soft, Normal Bowel Sounds. absent: Tenderness - Extremities Exam Extremities Exam: Full ROM, Normal Capillary Refill, Normal Inspection. absent : Joint Swelling, Pedal Edema - Back Exam Back Exam: NORMAL INSPECTION - Neurological Exam Neurological Exam: Alert, Awake, CN II-XII Intact, Normal Gait, Oriented x3 - Psychiatric Exam Psychiatric exam: Normal Affect, Normal Mood - Skin Skin Exam: Dry, Intact, Normal Color, Warm Assessment and Plan - Assessment and Plan (Free Text) Assessment: 58 year old [place] female with a past medical history significant for hemolytic anemia and HTN who presents with one week of shortness of breath. Her hemoglobin was found to be 7.5 with macrocytosis but B12 and Folate levels normal. Patient also had increased reticulocyte count, elevated bilirubin, but normal LDH. At this time, hemolytic anemia is still in the differential despite normal LDH and peripheral smear showing no schistocytes or nucleated RBC 's (however shows anisocytosis). Patient is of [place] heritage, cannot rule out thalassemia. CT Abd/pelvis does not show splenomegaly. FOBT was negative. At this time, H/H is stable but low. Plan: Symptomatic Macrocytic Anemia - Solumderol 100mg TID, Protonix drip, Thiamine, Folic Acid - PRBC's to be transfused if Hgb dops - Hematology consulted: Dr. Hall, follow recs - GI consulted: Dr. Ruggiero, follow recs - Flow cytometry pending; direct and indirect robert pending Lower Extremity Edema - No acute intervention, DVT ruled out History of HTN - Continue home Lisinopril - Diet: Heart Healthy History of Hemolytic Anemia - As per first assessment Prophylaxis - GI: Protonix; DVT: SCD <Leisa Huggins A - Last Filed: 03/18/18 15:17> Objective - Vital Signs/Intake and Output Vital Signs (last 24 hours): Temp Pulse Resp BP Pulse Ox 98 F 52 L 19 96/49 L 97 03/18/18 12:00 03/18/18 14:00 03/18/18 12:00 03/18/18 12:00 03/18/18 06:00 Intake and Output: 03/18/18 03/18/18 06:59 18:59 Intake Total 600 Balance 600 - Medications Medications: Current Medications Albuterol/Ipratropium (Duoneb 3 Mg/0.5 Mg (3 Ml) Ud) 3 ml IH Q2H PRN PRN Reason: Shortness of Breath Folic Acid (Folic Acid) 1 mg PO DAILY [facility] Last Admin: 03/18/18 09:55 Dose: 1 mg Pantoprazole Sodium (Protonix 40mg Ivpb) 40 mg in 100 mls @ 20 mls/hr IVPB .Q5H [facility] Last Admin: 03/18/18 14:48 Dose: 20 mls/hr Lisinopril (Zestril) 10 mg PO DAILY [facility] Last Admin: 03/18/18 09:55 Dose: 10 mg Methylprednisolone (Solu-Medrol) 100 mg IVP TID [facility] Last Admin: 03/18/18 14:48 Dose: 100 mg Ondansetron HCl (Zofran Odt) 4 mg PO Q8H PRN PRN Reason: Nausea/Vomiting Thiamine HCl (Vitamin B1 Tab) 100 mg PO DAILY [facility] Last Admin: 03/18/18 09:55 Dose: 100 mg - Labs Labs: 03/18/18 06:30 03/18/18 06:30 Attending/Attestation - Attestation I have personally seen and examined this patient.: Yes I have fully participated in the care of the patient.: Yes I have reviewed all pertinent clinical information, including history, physical exam and plan: Yes Notes (Text): 03/18/18 15:14 58 year old female with past medical history of hemolytic anemia and hypertension who presented with symptomatic anemia. Hemoglobin is 7.2 today. Bilirubin has improved and LDH was not elevated. She is on iv steroids as per hematology. Patient and family at this time deferred prbc transfusion until they speak with wearing apparel assembler since she had a reaction in the past. GI evaluation was appreciated who ordered CT abd/pelvis which showed mild stomach wall thickening. Continue with protonix. Will follow up with GI recommendations. Leukocytosis noted; likely secondary to steroids. Will continue to monitor. Leisa Huggins MD Hospitalist.
[2018-03-18] MEDS ORDERED: PED IV ONE (20:58)
[2018-03-18] MEDS ORDERED: ATROPINE IV ONE (20:58)
[2018-03-19] MEDS: Pantoprazole 40mg/100mL NS 40 MG/100 ML BAG IVPB SCH ×6 (00:30→20:30)
[2018-03-19 06:58] LABS: GRAN # 11.03 (1.4-6.5); GRAN % 83.5 % (50.0-68.0); HEMOGLOBIN 7.3 g/dL (12.0-16.0); LYMPH # 1.6 (1.2-3.4); LYMPH % 12.3 % (22.0-35.0); MEAN CELL VOLUME 116.5 fl (80.0-105.0); MEAN CORPUSCULAR HEMOGLOBIN 35.4 pg (25.0-35.0); MEAN CORPUSCULAR HGB CONC 30.4 g/dl (31.0-37.0); MEAN PLATELET VOLUME 10.6 fl (7.0-11.0); MONO # 0.6 (0.1-0.6); MONO % 4.2 % (1.0-6.0); RBC 2.06 10^6/uL (3.5-6.1); RED CELL DISTRIBUTION WIDTH 13.6 % (11.5-14.5); WHITE BLOOD COUNT 13.2 10^3/ul (4.5-11.0)
[2018-03-19 07:54] LABS: ALB/GLOB RATIO 1.1 (1.1-1.8); ALBUMIN 3.7 g/dL (3.0-4.8); CALCIUM 8.9 mg/dL (8.4-10.5)
[2018-03-19 11:48] LABS: ALBUMIN (PEP) 3.8 g/dL (3.8-4.8); ALPHA-1-GLOBULIN (PEP) 0.2 g/dL (0.2-0.3)
[2018-03-19] MEDS: POLYETHYLENE GLYCOL 3350 17 GM/Dose PACKET PO SCH ×2 (12:19→17:35)
[2018-03-19 12:53] LABS: INR 1.13 (0.93-1.08); PARTIAL THROMBOPLASTIN TIME 24.5 Seconds (25.1-36.5)
[2018-03-19] MEDS ORDERED: Iohexol 350 MG/100 ML VIAL ONE (13:12)
--- NOTE | 2018-03-19 13:15 | PN ---
DATE: 03/19/2018 SUBJECTIVE: The patient is lying in bed. She feels better. She denies any further abdominal pain. She had multiple bowel movements. OBJECTIVE: VITAL SIGNS: Reveal temperature of 97.9, blood pressure 99/55, heart rate of 55. HEENT: Reveal sclerae to be white. Conjunctivae pale. NECK: Supple. CHEST: Lungs are clear. HEART: Exam reveals a regular rate and rhythm. ABDOMEN: Soft, nontender. EXTREMITIES: Show no edema. DATA: Laboratory data reveal hemoglobin 7.3, white blood cell count 13.2. Chemistries reveal blood sugar of 123. CT scan of the abdomen and pelvis performed in the hospital shows some nonspecific mural thickening of the stomach and increased stool throughout the colon. IMPRESSION: 1. Recurrent severe hemolytic anemia. 2. Abdominal pain, most likely secondary to constipation, resolved. RECOMMENDATIONS: 1. We will start the patient on MiraLax 17 g p.o. b.i.d. 2. Await stool guaiacs, she has not submitted a stool specimen. Dimitri Ruggiero MD
--- NOTE | 2018-03-19 14:00 | CP.PCM.PN ---
<Pavel Martinez - Last Filed: 03/19/18 14:03> Subjective - Date & Time of Evaluation Date of Evaluation: 03/19/18 Time of Evaluation: 07:45 - Subjective Subjective: Patient seen and examined at bedside in no acute distress this morning. States she feels better than when she was first admitted. Denies shortness of breath, nausea, vomiting, diarrhea, abdominal pain, fevers, chills. Objective - Vital Signs/Intake and Output Vital Signs (last 24 hours): Temp Pulse Resp BP Pulse Ox 98.1 F 54 L 18 118/57 L 100 03/19/18 12:00 03/19/18 12:00 03/19/18 12:00 03/19/18 12:00 03/19/18 00:01 Intake and Output: 03/19/18 03/19/18 06:59 18:59 Intake Total 240 Balance 240 - Medications Medications: Current Medications Acetaminophen (Tylenol 325mg Tab) 650 mg PO Q6H PRN PRN Reason: Headache Albuterol/Ipratropium (Duoneb 3 Mg/0.5 Mg (3 Ml) Ud) 3 ml IH Q2H PRN PRN Reason: Shortness of Breath Folic Acid (Folic Acid) 1 mg PO DAILY [facility] Last Admin: 03/19/18 09:55 Dose: 1 mg Pantoprazole Sodium (Protonix 40mg Ivpb) 40 mg in 100 mls @ 20 mls/hr IVPB .Q5H [facility] Last Admin: 03/19/18 09:30 Dose: Not Given Lisinopril (Zestril) 10 mg PO DAILY [facility] Last Admin: 03/19/18 09:55 Dose: Not Given Ondansetron HCl (Zofran Odt) 4 mg PO Q8H PRN PRN Reason: Nausea/Vomiting Polyethylene Glycol (Miralax) 17 gm PO BID [facility] Last Admin: 03/19/18 12:19 Dose: 17 gm Thiamine HCl (Vitamin B1 Tab) 100 mg PO DAILY [facility] Last Admin: 03/19/18 09:55 Dose: 100 mg - Labs Labs: 03/19/18 06:30 03/19/18 06:30 PT 13.0 SECONDS (9.4-12.5) H 03/19/18 12:20 INR 1.13 (0.93-1.08) H 03/19/18 12:20 APTT 24.5 Seconds (25.1-36.5) L 03/19/18 12:20 - Constitutional Appears: Non-toxic - Head Exam Head Exam: ATRAUMATIC, NORMAL INSPECTION, NORMOCEPHALIC - Eye Exam Eye Exam: EOMI, Normal appearance - ENT Exam ENT Exam: Mucous Membranes Moist, Normal Exam - Respiratory Exam Respiratory Exam: Clear to Ausculation Bilateral, NORMAL BREATHING PATTERN - Cardiovascular Exam Cardiovascular Exam: Bradycardia, REGULAR RHYTHM, +S1, +S2 - GI/Abdominal Exam GI & Abdominal Exam: Soft, Tenderness, Normal Bowel Sounds - Extremities Exam Extremities Exam: Normal Inspection - Back Exam Back Exam: NORMAL INSPECTION - Neurological Exam Neurological Exam: Alert, Awake, CN II-XII Intact, Oriented x3 - Psychiatric Exam Psychiatric exam: Normal Affect, Normal Mood - Skin Skin Exam: Normal Color, Warm Assessment and Plan - Assessment and Plan (Free Text) Assessment: 58 year old Irish female with a past medical history significant for hemolytic anemia and HTN who presents with one week of shortness of breath. At this time, H/H is stable but low. Elevated D-dimer on labs today, will follow up with a CTA . Plan: Symptomatic Macrocytic Anemia - Solumderol 100mg BID, Protonix drip, Thiamine, Folic Acid - PRBCs not to be transfused yet, hematology will evaluate patient tomorrow morning - Hematology consulted: Dr. Hall, follow recs - GI consulted: Dr. Ruggiero, recommends miralex BID for constipation and stool guiac studies ordered - Flow cytometry pending; direct and indirect robert still pending Elevated D-dimer - CTA ordered; results pending Bradycardia -Cardiolog consulted; not concerned however will f/u with echo results History of HTN - Continue home Lisinopril - Diet: Heart Healthy Prophylaxis - GI: Protonix; DVT: SCD <Leisa Huggins - Last Filed: 03/19/18 14:22> Objective - Vital Signs/Intake and Output Vital Signs (last 24 hours): Temp Pulse Resp BP Pulse Ox 98.1 F 54 L 18 118/57 L 100 03/19/18 12:00 03/19/18 12:00 03/19/18 12:00 03/19/18 12:00 03/19/18 00:01 Intake and Output: 03/19/18 03/19/18 06:59 18:59 Intake Total 240 Balance 240 - Medications Medications: Current Medications Acetaminophen (Tylenol 325mg Tab) 650 mg PO Q6H PRN PRN Reason: Headache Albuterol/Ipratropium (Duoneb 3 Mg/0.5 Mg (3 Ml) Ud) 3 ml IH Q2H PRN PRN Reason: Shortness of Breath Folic Acid (Folic Acid) 1 mg PO DAILY [facility] Last Admin: 03/19/18 09:55 Dose: 1 mg Pantoprazole Sodium (Protonix 40mg Ivpb) 40 mg in 100 mls @ 20 mls/hr IVPB .Q5H [facility] Last Admin: 03/19/18 09:30 Dose: Not Given Lisinopril (Zestril) 10 mg PO DAILY [facility] Last Admin: 03/19/18 09:55 Dose: Not Given Methylprednisolone (Solu-Medrol) 100 mg IVP BID [facility] Ondansetron HCl (Zofran Odt) 4 mg PO Q8H PRN PRN Reason: Nausea/Vomiting Polyethylene Glycol (Miralax) 17 gm PO BID [facility] Last Admin: 03/19/18 12:19 Dose: 17 gm Thiamine HCl (Vitamin B1 Tab) 100 mg PO DAILY [facility] Last Admin: 03/19/18 09:55 Dose: 100 mg - Labs Labs: 03/19/18 06:30 03/19/18 06:30 PT 13.0 SECONDS (9.4-12.5) H 03/19/18 12:20 INR 1.13 (0.93-1.08) H 03/19/18 12:20 APTT 24.5 Seconds (25.1-36.5) L 03/19/18 12:20 Attending/Attestation - Attestation I have personally seen and examined this patient.: Yes I have fully participated in the care of the patient.: Yes I have reviewed all pertinent clinical information, including history, physical exam and plan: Yes Notes (Text): 03/19/18 14:18 58 year old female with past medical history of hemolytic anemia and hypertension who presented with symptomatic anemia. Hemoglobin has been stable between 7-8. Bilirubin has improved and LDH was not elevated. She is on iv steroids as per hematology. Patient and family at this time deferred prbc transfusion until they speak with top lifter since she had a reaction in the past. CT abd/pelvis which showed mild stomach wall thickening. Started miralax for constipation. Awaiting stool for occult blood. Continue with protonix. Will follow up with GI recommendations. Leukocytosis noted; likely secondary to steroids. Will continue to monitor. Leisa Huggins MD Hospitalist.
--- NOTE | 2018-03-19 14:13 | CT ---
PROCEDURE: CT Chest with contrast (Pulmonary Angiogram) HISTORY: elevated D-dimer COMPARISON: None available. TECHNIQUE: Axial computed tomography images were obtained of the chest in the pulmonary arterial phase of enhancement. Coronal and sagittal reformatted images were created and reviewed. Intravenous contrast dose: 100 cc of Omni 350 Radiation dose: Total exam DLP = 390 mGy-cm. This CT exam was performed using one or more of the following dose reduction techniques: Automated exposure control, adjustment of the mA and/or kV according to patient size, and/or use of iterative reconstruction technique. FINDINGS: PULMONARY ARTERIES: Unremarkable. No pulmonary embolism. AORTA: No acute findings. No thoracic aortic aneurysm. LUNGS: Unremarkable. No nodule, mass or pulmonary consolidation. PLEURAL SPACES: Unremarkable. No effusion or pneuomothorax. HEART: Unremarkable. No cardiomegaly. No significant pericardial effusion. LYMPH NODES: No lymphadenopathy. BONES, CHEST WALL: Unremarkable. No fracture or destructive lesion OTHER FINDINGS: Unremarkable. IMPRESSION: Unremarkable CT pulmonary angiogram. No pulmonary embolus.
--- NOTE | 2018-03-19 22:41 | CARD ---
APPROVED REPORT EKG Measurement Heart [id number] <Conclusion> Marked sinus bradycardia Abnormal ECG
--- NOTE | 2018-03-19 22:43 | CON ---
DATE: REASON FOR CONSULTATION: Sinus bradycardia. HISTORY OF PRESENT ILLNESS: The patient is a [id number] [place] female who three years ago was diagnosed with hemolytic anemia; however, the patient does not know the definite diagnosis of what kind of hemolytic anemia. However, the patient stated that she was placed on prednisone. The patient denies any hematuria. One time only she experienced jaundice and the patient did not receive any blood transfusion in the [facility], where she was treated for the past three years; however in [place], she was given packed RBCs transfusion to help her with her overseas flight; however, she said after arrival to [facility], her blood counts dropped again immediately to the pre-transfusion level. The patient presented because of right leg pain and , generalized body aches, chest pain, and last night she was noted to have heart rate in the 30s and required atropine 0.5 IV push. The patient denies any similar scenario of low heart beat. The patient is unaware of any history of heat attack in the past, but she has been experiencing chest pains with generalized body aches related to her hemolytic crises. MEDICATIONS: Albuterol inhaler, folic acid 1 mg once a day, Solu-Medrol t.i.d., thiamine 100 mg once a day, Zestril 10 mg once a day, Zofran 4 mg p.o. every 6 hours. PHYSICAL EXAMINATION: GENERAL: The patient is a middle-aged female who does not appear to be in acute distress. VITAL SIGNS: Blood pressure 99/55, heart rate of 65, temperature 97.9, respirations 20. HEENT: Pale conjunctivae. CHEST: Clear. HEART: S1 and S2 regular. ABDOMEN: Soft. EXTREMITIES: No calf tenderness, slight ecchymosis on the left lower leg. LABORATORY DATA: Hemoglobin and hematocrit 7.3 and 24, white count 13.2, platelet count 272,000. The anemia according to the numbers are microcytic, hypochromic. Platelet count is elevated at 12.9. Haptoglobin is less than 20. Hepatitis profile is negative. Initial EKG revealed sinus bradycardia at the rate of 56. Last night EKG revealed sinus bradycardia at the rate of 45. Abdomen and pelvis CT scan, no acute intraabdominal pathology. There is mild wall thickening on stomach likely due to incomplete distention. Venous Doppler of the lower extremities, no sonographic evidence of DVT. ASSESSMENT: 1. Sinus bradycardia. 2. Hemolytic anemia. Differential diagnoses is autoimmune, thalassemia, glucose 6 phosphate dehydrogenase deficiency. 3. Atypical chest pain. CONDITIONS: Continue current folic acid, Solu-Medrol, start intravenous hydration, obtain an echocardiogram. The patient will be evaluated. Obtain PT and PTT as well as D-dimer. The patient will be evaluated by Dr. Barkley, the Oncology Account Specialist today. The patient's thyroid profile was already done on admission and was entirely within normal limit. Ric Staley MD
[2018-03-20] MEDS: Pantoprazole 40mg/100mL NS 40 MG/100 ML BAG IVPB SCH ×3 (00:59→10:15)
--- NOTE | 2018-03-20 07:09 | CP.PCM.PN ---
<Pavel Martinez - Last Filed: 03/20/18 13:25> Subjective - Date & Time of Evaluation Date of Evaluation: 03/20/18 Time of Evaluation: 07:05 - Subjective Subjective: Patient seen and examined at bedside in no acute distress. Patient states she felt well after the CTA she was able to sleep with ease for the first time in a while. States she did not have the echo done yesterday due to scheduling however will have it done today. Denies chest pain, palpitations, fevers, chills , shortness of breath, abdominal pain, nausea, vomiting, diarrhea. Questioning her bradycardia episodes. States she never started having problems with her heart until 3 years aog in [place] when she overdosed on vitamin D and almost had a heart attack. Objective - Vital Signs/Intake and Output Vital Signs (last 24 hours): Temp Pulse Resp BP Pulse Ox 97.9 F 41 L 18 115/72 95 03/20/18 06:00 03/20/18 06:00 03/20/18 06:00 03/20/18 06:00 03/20/18 06:00 Intake and Output: 03/20/18 03/20/18 06:59 18:59 Intake Total 780 Balance 780 - Medications Medications: Current Medications Acetaminophen (Tylenol 325mg Tab) 650 mg PO Q6H PRN PRN Reason: Headache Albuterol/Ipratropium (Duoneb 3 Mg/0.5 Mg (3 Ml) Ud) 3 ml IH Q2H PRN PRN Reason: Shortness of Breath Folic Acid (Folic Acid) 1 mg PO DAILY [facility] Last Admin: 03/19/18 09:55 Dose: 1 mg Pantoprazole Sodium (Protonix 40mg Ivpb) 40 mg in 100 mls @ 20 mls/hr IVPB .Q5H [facility] Last Admin: 03/20/18 05:19 Dose: 20 mls/hr Lisinopril (Zestril) 10 mg PO DAILY [facility] Last Admin: 03/19/18 09:55 Dose: Not Given Methylprednisolone (Solu-Medrol) 100 mg IVP BID [facility] Last Admin: 03/19/18 17:35 Dose: 100 mg Ondansetron HCl (Zofran Odt) 4 mg PO Q8H PRN PRN Reason: Nausea/Vomiting Polyethylene Glycol (Miralax) 17 gm PO BID [facility] Last Admin: 03/19/18 17:35 Dose: 17 gm Thiamine HCl (Vitamin B1 Tab) 100 mg PO DAILY [facility] Last Admin: 03/19/18 09:55 Dose: 100 mg - Labs Labs: 03/19/18 06:30 03/19/18 06:30 PT 13.0 SECONDS (9.4-12.5) H 03/19/18 12:20 INR 1.13 (0.93-1.08) H 03/19/18 12:20 APTT 24.5 Seconds (25.1-36.5) L 03/19/18 12:20 - Head Exam Head Exam: ATRAUMATIC, NORMAL INSPECTION, NORMOCEPHALIC - Eye Exam Eye Exam: EOMI, Normal appearance - ENT Exam ENT Exam: Mucous Membranes Moist, Normal Exam - Neck Exam Neck Exam: Full ROM, Normal Inspection - Respiratory Exam Respiratory Exam: Clear to Ausculation Bilateral, NORMAL BREATHING PATTERN. absent: Rhonchi, Wheezes - Cardiovascular Exam Cardiovascular Exam: REGULAR RHYTHM, +S1, +S2 - GI/Abdominal Exam GI & Abdominal Exam: Soft, Normal Bowel Sounds - Extremities Exam Extremities Exam: Full ROM - Back Exam Back Exam: NORMAL INSPECTION - Neurological Exam Neurological Exam: Alert, Awake, Oriented x3 - Psychiatric Exam Psychiatric exam: Normal Affect, Normal Mood - Skin Skin Exam: Normal Color, Warm Assessment and Plan - Assessment and Plan (Free Text) Assessment: 58 year old [place] female with a past medical history significant for hemolytic anemia and HTN who presents with one week of shortness of breath. At this time, H/H is stable but low. Elevated D-dimer on labs with negative CTA. Plan: Symptomatic Macrocytic Anemia -Solumderol 100mg BID, Protonix drip, Thiamine, Folic Acid -PRBCs not to be transfused yet, hematology will evaluate patient this afternoon -Hematology consulted: Dr. Hall, follow recs -GI consulted: Dr. Ruggiero, recommends miralex BID for constipation -Stool guiac negative -Flow cytometry pending -FRANCO and SPEP: increase in gamma globulins noted -Direct robert tests: final results pending; lab will f/u with [place] [employer] today -Indirect robert test: positive Elevated D-dimer - CTA ordered; negative Bradycardia -Cardiolog consulted; not concerned however will f/u with echo results History of HTN - Continue home Lisinopril - Diet: Heart Healthy Prophylaxis - GI: Protonix; DVT: SCD <Leisa Huggins - Last Filed: 03/20/18 14:56> Objective - Vital Signs/Intake and Output Vital Signs (last 24 hours): Temp Pulse Resp BP Pulse Ox 97.9 F 46 L 18 110/68 95 03/20/18 12:00 03/20/18 12:00 03/20/18 12:00 03/20/18 12:00 03/20/18 06:00 Intake and Output: 03/20/18 03/20/18 06:59 18:59 Intake Total 780 660 Balance 780 660 - Medications Medications: Current Medications Acetaminophen (Tylenol 325mg Tab) 650 mg PO Q6H PRN PRN Reason: Headache Last Admin: 03/20/18 14:25 Dose: 650 mg Albuterol/Ipratropium (Duoneb 3 Mg/0.5 Mg (3 Ml) Ud) 3 ml IH Q2H PRN PRN Reason: Shortness of Breath Folic Acid (Folic Acid) 1 mg PO DAILY [facility] Last Admin: 03/20/18 09:52 Dose: 1 mg Lisinopril (Zestril) 10 mg PO DAILY [facility] Last Admin: 03/20/18 09:55 Dose: Not Given Methylprednisolone (Solu-Medrol) 100 mg IVP BID [facility] Last Admin: 03/20/18 09:51 Dose: 100 mg Ondansetron HCl (Zofran Odt) 4 mg PO Q8H PRN PRN Reason: Nausea/Vomiting Pantoprazole Sodium (Protonix Ec Tab) 40 mg PO 0600 [facility] Polyethylene Glycol (Miralax) 17 gm PO BID [facility] Last Admin: 03/20/18 09:54 Dose: Not Given Thiamine HCl (Vitamin B1 Tab) 100 mg PO DAILY [facility] Last Admin: 03/20/18 09:51 Dose: 100 mg - Labs Labs: 03/20/18 07:00 03/20/18 07:00 PT 13.0 SECONDS (9.4-12.5) H 03/19/18 12:20 INR 1.13 (0.93-1.08) H 03/19/18 12:20 APTT 24.5 Seconds (25.1-36.5) L 03/19/18 12:20 Attending/Attestation - Attestation I have personally seen and examined this patient.: Yes I have fully participated in the care of the patient.: Yes I have reviewed all pertinent clinical information, including history, physical exam and plan: Yes Notes (Text): 03/20/18 14:53 58 year old female with past medical history of hemolytic anemia and hypertension who presented with symptomatic anemia. Hemoglobin has been stable between 7-8 and actually improved today to 8.3. Bilirubin was initially elevated but also improved. LDH was not elevated. She is on iv steroids and will be seen by hematology this afternoon. Patient and family at this time deferred prbc transfusion until they speak with product demonstrator since she had a reaction in the past. CT abd/pelvis which showed mild stomach wall thickening. She was started on miralax for constipation. Stool for occult blood was negative. She is on protonix. Will follow up with GI recommendations. Leukocytosis noted; likely secondary to steroids. Will continue to monitor. Cardiology evaluation was appreciated for bradycardia. Echocardiogram is pending. D-Dimer was elevated however LE doppler and CT angio were negative. Family is at bedside and questions were answered. PT evaluation is requested. Leisa Huggins MD Hospitalist.
[2018-03-20 07:31] LABS: BASO # 0.01 K/mm3 (0.0-2.0); BASO % 0.1 % (0.0-3.0); GRAN # 10.47 (1.4-6.5); GRAN % 79.4 % (50.0-68.0); HEMOGLOBIN 8.3 g/dL (12.0-16.0); LYMPH # 2.1 (1.2-3.4); LYMPH % 15.8 % (22.0-35.0); MEAN CELL VOLUME 115.4 fl (80.0-105.0); MEAN CORPUSCULAR HEMOGLOBIN 35.5 pg (25.0-35.0); MEAN CORPUSCULAR HGB CONC 30.7 g/dl (31.0-37.0); MEAN PLATELET VOLUME 10.1 fl (7.0-11.0); MONO # 0.6 (0.1-0.6); MONO % 4.7 % (1.0-6.0); RBC 2.34 10^6/uL (3.5-6.1); RED CELL DISTRIBUTION WIDTH 13.3 % (11.5-14.5); WHITE BLOOD COUNT 13.2 10^3/ul (4.5-11.0)
[2018-03-20 07:52] LABS: ALB/GLOB RATIO 1.1 (1.1-1.8); ALBUMIN 4.1 g/dL (3.0-4.8); ALT/SGPT 36 U/L (7-56); AST/SGOT 26 U/L (14-36); BLOOD UREA NITROGEN 25 mg/dL (7-21); CALCIUM 8.6 mg/dL (8.4-10.5); GFR AFRICAN-AMERICAN > 60; GFR NON-AFRICAN AMERICAN 51
[2018-03-20] MEDS: POLYETHYLENE GLYCOL 3350 17 GM/Dose PACKET PO SCH ×2 (09:54→17:05)
--- NOTE | 2018-03-20 18:54 | CARD ---
APPROVED REPORT EXAM: Two-dimensional and M-mode echocardiogram with Doppler and color Doppler. INDICATION 2D DIMENSIONS IVSd1.1 (0.7-1.1cm)LVDd4.7 (3.9-5.9cm) PWd1.2 (0.7-1.1cm)LVDs2.8 (2.5-4.0cm) FS (%) 39.4 %LVEF (%)70.0 (>50%) M-Mode DIMENSIONS Left Atrium (MM)4.40 (2.5-4.0cm)Aortic Root2.60 (2.2-3.7cm) Aortic Cusp Exc.1.70 (1.5-2.0cm) Aortic Valve AoV Peak Nixjttei491.0cm/Fracisco Peak GR.17mmHg Mitral Valve MV E Gvihmfcg49.9cm/sMV A Bwwgybdu56.8cm/sE/A ratio0.9 TDI Lateral E' Peak V9.94cm/sMedial E' Peak V6.53cm/sE/Lateral E'8.6 E/Medial E'13.2 Tricuspid Valve TR Peak Nivytcqm266ky/sRAP [id number] Peak Gr.34mmHg [id number] LEFT VENTRICLE The left ventricle is normal size. There is mild concentric left ventricular hypertrophy. The left ventricular function is normal. The left ventricular ejection fraction is within the normal range. There is normal LV segmental wall motion. RIGHT VENTRICLE The right ventricle is normal size. The right ventricular systolic function is normal. ATRIA The left atrium size is normal. The right atrium size is normal. The interatrial septum is intact with no evidence for an atrial septal defect. AORTIC VALVE The aortic valve is normal in structure. No aortic regurgitation is present. There is no aortic valvular stenosis. MITRAL VALVE The mitral valve is normal in structure. Mitral regurgitation is trace. TRICUSPID VALVE The tricuspid valve is normal in structure. There is mild tricuspid regurgitation. PULMONIC VALVE The pulmonary valve is normal in structure. GREAT VESSELS The aortic root is normal in size. The IVC is normal in size and collapses >50% with inspiration. PERICARDIAL EFFUSION There is no pleural effusion. There is no pericardial effusion. <Conclusion> Normal chamber size. Mild concentric LVH. Normal LV systolic function. Mild tricuspid regurgitation.
[2018-03-21 05:49] LABS: MCH 36.9 pg (27.0-33.0); MCV 111.9 fL (80.0-100.0)
[2018-03-21] MEDS: Pantoprazole 40 mg EC Tab PO SCH (06:12)
[2018-03-21 07:13] LABS: BASO # 0.01 K/mm3 (0.0-2.0); BASO % 0.1 % (0.0-3.0); GRAN # 8.86 (1.4-6.5); GRAN % 77.1 % (50.0-68.0); HEMOGLOBIN 8.6 g/dL (12.0-16.0); LYMPH # 1.9 (1.2-3.4); LYMPH % 16.2 % (22.0-35.0); MEAN CELL VOLUME 112.8 fl (80.0-105.0); MEAN CORPUSCULAR HEMOGLOBIN 35.5 pg (25.0-35.0); MEAN CORPUSCULAR HGB CONC 31.5 g/dl (31.0-37.0); MEAN PLATELET VOLUME 10.7 fl (7.0-11.0); MONO # 0.8 (0.1-0.6); MONO % 6.6 % (1.0-6.0); RBC 2.42 10^6/uL (3.5-6.1); WHITE BLOOD COUNT 11.5 10^3/ul (4.5-11.0)
[2018-03-21 07:28] LABS: ALBUMIN 3.7 g/dL (3.0-4.8)
[2018-03-21 07:32] LABS: ALT/SGPT 36 U/L (7-56); AST/SGOT 34 U/L (14-36); BLOOD UREA NITROGEN 23 mg/dL (7-21); GFR AFRICAN-AMERICAN > 60; GFR NON-AFRICAN AMERICAN 57
[2018-03-21] MEDS: POLYETHYLENE GLYCOL 3350 17 GM/Dose PACKET PO SCH ×2 (09:10→17:53)
[2018-03-21 16:00] LABS: HEMOGLOBIN A 96.6 Percent (>96.0); HEMOGLOBIN A2 2.4 Percent (1.8-3.5)
[2018-03-22 04:23] VITALS: O2SAT 96
[2018-03-22] MEDS: Pantoprazole 40 mg EC Tab PO SCH (05:57)
--- NOTE | 2018-03-22 06:34 | CP.PCM.PN ---
<Pavel Martinez - Last Filed: 03/22/18 06:30> Subjective - Date & Time of Evaluation Date of Evaluation: 03/21/18 Time of Evaluation: 06:05 - Subjective Subjective: Patient seen and examined at bedside in no acute distress. States she feels much better than yesterday. However later in the day admits to weakness and fatigue. Denies dizziness, shortness of breath, weakness, chest pain, palpitations, nausea, vomiting, diarrhea. Objective - Vital Signs/Intake and Output Vital Signs (last 24 hours): Temp Pulse Resp BP Pulse Ox 98.3 F 45 L 20 117/70 96 03/22/18 00:01 03/22/18 02:00 03/22/18 00:01 03/22/18 00:01 03/22/18 00:01 Intake and Output: 03/21/18 03/22/18 18:59 06:59 Intake Total 300 Output Total 0 Balance 300 - Medications Medications: Current Medications Acetaminophen (Tylenol 325mg Tab) 650 mg PO Q6H PRN PRN Reason: Headache Last Admin: 03/21/18 09:08 Dose: 650 mg Albuterol/Ipratropium (Duoneb 3 Mg/0.5 Mg (3 Ml) Ud) 3 ml IH Q2H PRN PRN Reason: Shortness of Breath Folic Acid (Folic Acid) 1 mg PO DAILY [facility] Last Admin: 03/21/18 09:10 Dose: 1 mg Lisinopril (Zestril) 10 mg PO DAILY [facility] Last Admin: 03/21/18 11:04 Dose: 10 mg Ondansetron HCl (Zofran Odt) 4 mg PO Q8H PRN PRN Reason: Nausea/Vomiting Pantoprazole Sodium (Protonix Ec Tab) 40 mg PO 0600 [facility] Last Admin: 03/22/18 05:57 Dose: 40 mg Polyethylene Glycol (Miralax) 17 gm PO BID [facility] Last Admin: 03/21/18 17:53 Dose: Not Given Prednisone (Prednisone Tab) 100 mg PO BID [facility] Last Admin: 03/21/18 17:56 Dose: 100 mg Thiamine HCl (Vitamin B1 Tab) 100 mg PO DAILY [facility] Last Admin: 03/21/18 09:09 Dose: 100 mg - Labs Labs: 03/21/18 06:30 03/21/18 06:30 PT 13.0 SECONDS (9.4-12.5) H 03/19/18 12:20 INR 1.13 (0.93-1.08) H 03/19/18 12:20 APTT 24.5 Seconds (25.1-36.5) L 03/19/18 12:20 - Head Exam Head Exam: ATRAUMATIC, NORMAL INSPECTION, NORMOCEPHALIC - Eye Exam Eye Exam: EOMI, Normal appearance - ENT Exam ENT Exam: Mucous Membranes Moist - Respiratory Exam Respiratory Exam: Clear to Ausculation Bilateral, NORMAL BREATHING PATTERN - Cardiovascular Exam Cardiovascular Exam: REGULAR RHYTHM, +S1, +S2 - GI/Abdominal Exam GI & Abdominal Exam: Soft, Normal Bowel Sounds - Neurological Exam Neurological Exam: Alert, Awake, Oriented x3 - Psychiatric Exam Psychiatric exam: Normal Affect, Normal Mood - Skin Skin Exam: Normal Color, Warm Assessment and Plan - Assessment and Plan (Free Text) Assessment: 58 year old [place] female with a past medical history significant for hemolytic anemia and HTN who presents with one week of shortness of breath. At this time, H/H is stable but low. Elevated D-dimer on labs with negative CTA. Plan: Symptomatic Macrocytic Anemia -Solumderol 50mg BID Protonix , Thiamine, Folic Acid -Hematology consulted: Dr. Hall, follow recs -GI consulted: Dr. Ruggiero, recommends miralax BID for constipation -Stool guiac negative -Flow cytometry re-ordered to screen for PNH -FRANCO and SPEP: increase in gamma globulins noted -Direct robert tests: positive -Indirect robert test: positive Elevated D-dimer - CTA ordered; negative Bradycardia -Cardiolog consulted; echo reveals no abnormalities History of HTN - Continue home Lisinopril - Diet: Heart Healthy Prophylaxis - GI: Protonix; DVT: SCD <Leisa Huggins - Last Filed: 03/22/18 07:21> Objective - Vital Signs/Intake and Output Vital Signs (last 24 hours): Temp Pulse Resp BP Pulse Ox 98.3 F 45 L 20 117/70 96 03/22/18 00:01 03/22/18 02:00 03/22/18 00:01 03/22/18 00:01 03/22/18 00:01 Intake and Output: 03/22/18 03/22/18 06:59 18:59 Intake Total 1080 Output Total 3 Balance 1077 - Medications Medications: Current Medications Acetaminophen (Tylenol 325mg Tab) 650 mg PO Q6H PRN PRN Reason: Headache Last Admin: 03/21/18 09:08 Dose: 650 mg Albuterol/Ipratropium (Duoneb 3 Mg/0.5 Mg (3 Ml) Ud) 3 ml IH Q2H PRN PRN Reason: Shortness of Breath Folic Acid (Folic Acid) 1 mg PO DAILY [facility] Last Admin: 03/21/18 09:10 Dose: 1 mg Lisinopril (Zestril) 10 mg PO DAILY [facility] Last Admin: 03/21/18 11:04 Dose: 10 mg Ondansetron HCl (Zofran Odt) 4 mg PO Q8H PRN PRN Reason: Nausea/Vomiting Pantoprazole Sodium (Protonix Ec Tab) 40 mg PO 0600 [facility] Last Admin: 03/22/18 05:57 Dose: 40 mg Polyethylene Glycol (Miralax) 17 gm PO BID [facility] Last Admin: 03/21/18 17:53 Dose: Not Given Prednisone (Prednisone Tab) 100 mg PO BID [facility] Last Admin: 03/21/18 17:56 Dose: 100 mg Thiamine HCl (Vitamin B1 Tab) 100 mg PO DAILY [facility] Last Admin: 03/21/18 09:09 Dose: 100 mg - Labs Labs: 03/22/18 05:30 03/22/18 05:30 PT 13.0 SECONDS (9.4-12.5) H 03/19/18 12:20 INR 1.13 (0.93-1.08) H 03/19/18 12:20 APTT 24.5 Seconds (25.1-36.5) L 03/19/18 12:20 Attending/Attestation - Attestation I have personally seen and examined this patient.: Yes I have fully participated in the care of the patient.: Yes I have reviewed all pertinent clinical information, including history, physical exam and plan: Yes Notes (Text): 03/21/18 58 year old female with past medical history of hemolytic anemia and hypertension who presented with symptomatic anemia. Hemoglobin has been stable between 7-8 but now is improving. Today it is 8.6. Bilirubin was initially elevated but also improved. LDH was not elevated. She was seen by hematology and additional workup was ordered and reviewed as above. She is on tapering steroids. Patient and family at this time deferred prbc transfusion until they speak with quality consultant since she had a reaction in the past. CT abd/pelvis which showed mild stomach wall thickening. She was started on miralax for constipation. Stool for occult blood was negative. She is on protonix. Case was discussed with Dr. Ruggiero today. Leukocytosis noted; likely secondary to steroids. Will continue to monitor. Cardiology evaluation was appreciated for bradycardia. Echocardiogram was reviewed. D-Dimer was elevated however LE doppler and CT angio were negative. Family is at bedside and questions were answered. Today her symptoms have improved. She is ambulating with PT. D/c planning. Leisa Huggins MD Hospitalist.
[2018-03-22 06:40] LABS: GRAN # 10.61 (1.4-6.5); GRAN % 87.8 % (50.0-68.0); HEMOGLOBIN 9.7 g/dL (12.0-16.0); LYMPH # 1.1 (1.2-3.4); LYMPH % 9.4 % (22.0-35.0); MEAN CELL VOLUME 113.1 fl (80.0-105.0); MEAN CORPUSCULAR HEMOGLOBIN 35.4 pg (25.0-35.0); MEAN CORPUSCULAR HGB CONC 31.3 g/dl (31.0-37.0); MEAN PLATELET VOLUME 10.9 fl (7.0-11.0); MONO # 0.3 (0.1-0.6); MONO % 2.8 % (1.0-6.0); RBC 2.74 10^6/uL (3.5-6.1); RED CELL DISTRIBUTION WIDTH 13.3 % (11.5-14.5); WHITE BLOOD COUNT 12.1 10^3/ul (4.5-11.0)
[2018-03-22 07:07] LABS: ALBUMIN 3.7 g/dL (3.0-4.8); ALT/SGPT 33 U/L (7-56); AST/SGOT 26 U/L (14-36); BLOOD UREA NITROGEN 30 mg/dL (7-21); CALCIUM 9.3 mg/dL (8.4-10.5); GFR AFRICAN-AMERICAN > 60; GFR NON-AFRICAN AMERICAN 51
[2018-03-22 07:23] VITALS: BP 119/63; RESP 18; TEMP 98.2
--- NOTE | 2018-03-22 07:36 | PN ---
DATE: SUBJECTIVE: The patient was seen yesterday while making round. The labs, imaging studies and the chart reviewed in great detail and confirmed that the patient and all involved. Sunita is a 58-year-old female who was admitted to [facility] ([facility] with recurrent symptomatic anemia. The patient complains of extreme fatigue and generalized weakness. The patient had severe hemolytic anemia three years ago and she was admitted at the Hospital where the patient received blood transfusion for her anemia. The records are not available, but according to the patient, the patient had a hemolytic anemia. The patient has anti-C and anti-E like antibodies that was detected in 10/2014 by [facility]. The patient also has a history of severe symptomatic anemia while she was in [place]. The patient has a history of multiple blood transfusion in [place]. The patient denies any such anemia in her family. The patient has several brother and sisters, and there is no history of anemia or cancer in the family. The patient has four children and denies of any having anemia or any bleeding disorder in the family. The patient states that she received blood transfusion and possibly intravenous immunoglobulin for her symptomatic anemia, and she was admitted in [facility]. During this hospitalization, the patient was found to have hemoglobin around 7 and bilirubin on admission was around 2 with high LDH and a high retic count. The patient received treatment with steroid, Solu-Medrol. Her CT angiogram as well as CT abdomen was unremarkable and there was no adenopathy, hepatosplenomegaly, or any other abnormalities except there is a question about gastric thickening. The patient was recommended to have an upper endoscopy to evaluate the gastric abnormalities. The patient's current immunoglobulin is around 8. The bilirubin has normalized. LDH is coming down and the patient feels much better. The patient was also found to have autoantibody. C-antigen and E-antigen were positive. The patient also has a for PNH that is pending in order to rule out paroxysmal nocturnal hemoglobinuria also in this patient. The patient is currently maintained on steroid. The patient also reported to have history of tapering dose of steroid for months in the past. The patient is very well and clinically improving. PHYSICAL EXAMINATION: Unremarkable. No palpable hepatosplenomegaly or adenopathy. 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 The patient is currently stable on steroid and will be placed on oral tapering dose of steroid. The patient will be followed up by the team as an outpatient and will re-consult as needed. Marin Barkley MD
[2018-03-22] MEDS: POLYETHYLENE GLYCOL 3350 17 GM/Dose PACKET PO SCH (10:34)
[2018-03-22 11:40] VITALS: PULSE 47
--- NOTE | 2018-03-22 15:38 | CP.PCM.DIS ---
Provider - Provider Date of Admission: 03/16/18 04:34 Attending physician: Leisa Huggins MD Primary care physician: NO [facility] Course - Lab Results Lab Results: Most Recent Lab Values WBC 12.1 10^3/ul (4.5-11.0) H 03/22/18 05:30 RBC 2.74 10^6/uL (3.5-6.1) L 03/22/18 05:30 Hgb 9.7 g/dL (12.0-16.0) L 03/22/18 05:30 Hct 31.0 % (36.0-48.0) L 03/22/18 05:30 MCV 113.1 fl (80.0-105.0) H 03/22/18 05:30 MCH 35.4 pg (25.0-35.0) H 03/22/18 05:30 MCHC 31.3 g/dl (31.0-37.0) 03/22/18 05:30 RDW 13.3 % (11.5-14.5) 03/22/18 05:30 Plt Count 319 10^3/uL (120.0-450.0) 03/22/18 05:30 MPV 10.9 fl (7.0-11.0) 03/22/18 05:30 Gran % 87.8 % (50.0-68.0) H 03/22/18 05:30 Lymph % (Auto) 9.4 % (22.0-35.0) L 03/22/18 05:30 Hill % (Auto) 2.8 % (1.0-6.0) 03/22/18 05:30 Eos % (Auto) 0.0 % (1.5-5.0) L 03/22/18 05:30 Baso % (Auto) 0.0 % (0.0-3.0) 03/22/18 05:30 Gran # 10.61 (1.4-6.5) H 03/22/18 05:30 Lymph # (Auto) 1.1 (1.2-3.4) L 03/22/18 05:30 Hill # (Auto) 0.3 (0.1-0.6) 03/22/18 05:30 Eos # (Auto) 0.0 (0.0-0.7) 03/22/18 05:30 Baso # (Auto) 0.00 K/mm3 (0.0-2.0) 03/22/18 05:30 Differential Comment See pathology report 03/16/18 06:00 Retic Count 12.95 % (0.5-1.5) H* 03/16/18 06:00 Hemoglobin A 96.6 Percent (>96.0) 03/20/18 17:59 Hemoglobin A2 2.4 Percent (1.8-3.5) 03/20/18 17:59 Hemoglobin C 0.0 Percent (0.0-0.0) 03/20/18 17:59 Hemoglobin F () <1.0 Percent (<2.0) 03/20/18 17:59 Hemoglobin S 0.0 Percent (0.0-0.0) 03/20/18 17:59 Variant Hemoglobin 0.0 Percent (0.0-0.0) 03/20/18 17:59 Hemoglobinopathy Red Blood Count 2.37 Mill/mcL (3.80-5.10) L 03/20/18 17:59 Hemoglobinopathy Hct 26.5 % (35.0-45.0) L 03/20/18 17:59 Hemoglobinopathy Hgb 8.8 g/dL (11.7-15.5) L 03/20/18 17:59 Hemoglobinopathy MCV 111.9 fL (80.0-100.0) H 03/20/18 17:59 Hemoglobinopathy MCH 36.9 pg (27.0-33.0) H 03/20/18 17:59 Hemoglobinopathy RDW 14.2 % (11.0-15.0) 03/20/18 17:59 Hemoglobinopathy Interp See note 03/20/18 17:59 Haptoglobin < 20.0 mg/dL (30.0-200.0) L 03/16/18 06:00 PT 13.0 SECONDS (9.4-12.5) H 03/19/18 12:20 INR 1.13 (0.93-1.08) H 03/19/18 12:20 APTT 24.5 Seconds (25.1-36.5) L 03/19/18 12:20 D-Dimer, Quantitative 284 ng/mL (0-243) H 03/19/18 12:20 Sodium 141 mmol/L (132-148) 03/22/18 05:30 Potassium 4.1 mmol/L (3.6-5.0) 03/22/18 05:30 Chloride 98 mmol/L (98-107) 03/22/18 05:30 Carbon Dioxide 29 mmol/L (21-33) 03/22/18 05:30 Anion Gap 18 (10-20) 03/22/18 05:30 BUN 30 mg/dL (7-21) H 03/22/18 05:30 Creatinine 1.1 mg/dl (0.7-1.2) 03/22/18 05:30 Est GFR ( Amer) > 60 03/22/18 05:30 Est GFR (Non-Af Amer) 51 03/22/18 05:30 Random Glucose 165 mg/dL (70-110) H 03/22/18 05:30 Calcium 9.3 mg/dL (8.4-10.5) 03/22/18 05:30 Iron 190 ug/dL (45-180) H 03/16/18 06:00 TIBC 270 ug/dL (265-497) 03/16/18 06:00 % Saturation 71 % (20-55) H 03/16/18 06:00 Transferrin 181.54 mg/dL (206-381) L 03/16/18 06:00 Ferritin 563.0 ng/mL 03/16/18 06:00 Total Bilirubin 0.8 mg/dL (0.2-1.3) 03/22/18 05:30 Direct Bilirubin 0.5 mg/dL (0.0-0.4) H 03/16/18 02:20 AST 26 U/L (14-36) 03/22/18 05:30 ALT 33 U/L (7-56) 03/22/18 05:30 Alkaline Phosphatase 51 U/L (38-126) 03/22/18 05:30 Lactate Dehydrogenase 561 U/L (333-699) 03/16/18 06:00 Troponin I < 0.01 ng/mL 03/18/18 21:10 Total Protein 7.4 g/dL (5.8-8.3) 03/22/18 05:30 Total Protein (PEP) 7.2 g/dL (6.1-8.1) 03/16/18 06:00 Albumin 3.7 g/dL (3.0-4.8) 03/22/18 05:30 Albumin (PEP) 3.8 g/dL (3.8-4.8) 03/16/18 06:00 Globulin 3.7 gm/dL 03/22/18 05:30 Albumin/Globulin Ratio 1.0 (1.1-1.8) L 03/22/18 05:30 Htmhh-3-Myxexmpji 0.2 g/dL (0.2-0.3) 03/16/18 06:00 Etkcq-0-Nfdfhpuqd 0.5 g/dL (0.5-0.9) 03/16/18 06:00 Zitn-3-Dkvtdzgo 0.3 g/dL (0.4-0.6) L 03/16/18 06:00 Nxky-1-Djqurfud 0.4 g/dL (0.2-0.5) 03/16/18 06:00 Gamma Globulins 1.9 g/dL (0.8-1.7) H 03/16/18 06:00 Abnorm Protein Band 1 TEST NOT PERFORMED 03/16/18 06:00 Abnorm Protein Band 2 TEST NOT PERFORMED 03/16/18 06:00 Abnorm Protein Band 3 TEST NOT PERFORMED 03/16/18 06:00 Vitamin B12 601 pg/mL (239-931) 03/16/18 06:00 Folate 18.5 ng/mL 03/16/18 06:00 Free T4 1.01 ng/dL (0.78-2.19) 03/16/18 06:00 Thyroxine (T4) 7.5 ug/dL (5.5-11.0) 03/16/18 06:00 Total T3 1.12 ng/mL (0.97-1.69) 03/16/18 06:00 TSH 3rd Generation 0.49 mIU/mL (0.46-4.68) 03/16/18 06:00 Urine Color Yellow (YELLOW) 03/16/18 06:27 Urine Appearance Clear (CLEAR) 03/16/18 06:27 Urine pH 6.0 (4.7-8.0) 03/16/18 06:27 Ur Specific [place] <= 1.005 (1.005-1.035) 03/16/18 06:27 Urine Protein Negative mg/dL (<30 mg/dL) 03/16/18 06:27 Urine Glucose (UA) Negative mg/dL (NEGATIVE) 03/16/18 06:27 Urine Ketones Negative mg/dL (NEGATIVE) 03/16/18 06:27 Urine Blood Negative (NEGATIVE) 03/16/18 06:27 Urine Nitrate Negative (NEGATIVE) 03/16/18 06:27 Urine Bilirubin Negative (NEGATIVE) 03/16/18 06:27 Urine Urobilinogen 0.2 E.U./dL (<1 E.U./dL) 03/16/18 06:27 Ur Leukocyte Esterase Trace Elsa/uL (NEGATIVE) H 03/16/18 06:27 Urine RBC 0 - 2 /hpf (0-2) 03/16/18 06:27 Urine WBC 2 - 5 /hpf (0-6) 03/16/18 06:27 Ur Epithelial Cells 3 - 4 /hpf (0-5) 03/16/18 06:27 Urine Bacteria Few (NEG) 03/16/18 06:27 Stool Occult Blood Negative (NEGATIVE) 03/19/18 20:50 Whole Blood Lead 1 mcg/dL (<5) 03/16/18 06:00 FRANCO & SPEP Interp See note 03/16/18 06:00 Urine Immunofixation Not detected (Not Detected) 03/20/18 17:45 Hepatitis A IgM Ab Negative (NEGATIVE) 03/16/18 06:00 Hep Bs Antigen Negative (NEGATIVE) 03/16/18 06:00 Hep B Core IgM Ab Negative (NEGATIVE) 03/16/18 06:00 Hepatitis C Antibody Negative (NEGATIVE) 03/16/18 06:00 HIV-1 Antibody TEST NOT PERFORMED 03/16/18 06:00 HIV-2 Antibody TEST NOT PERFORMED 03/16/18 06:00 HIV 1&2 Ag/Ab, 4th Gen Nonreactive (Nonreactive) 03/16/18 06:00 HIV 1&2 Antibody Screen Cancelled 03/16/18 06:00 WB Flow Cytometry Reference test 03/16/18 15:49 Blood Type B POSITIVE 03/16/18 03:47 Blood Type Confirm B POSITIVE 03/16/18 04:00 Antibody Screen Positive 03/16/18 03:47 Antibody Identification WARM AUTO ANTIBODY 03/16/18 03:47 Antigen Identification C Antigen - POSITIVE E Antigen - POSITIVE c Antigen - POSITIVE e Antigen - POSITIVE 03/16/18 03:47 Antigen Identification C Antigen - POSITIVE E Antigen - POSITIVE c Antigen - POSITIVE e Antigen - POSITIVE 03/16/18 03:47 Antigen Identification C Antigen - POSITIVE E Antigen - POSITIVE c Antigen - POSITIVE e Antigen - POSITIVE 03/16/18 03:47 Antigen Identification C Antigen - POSITIVE E Antigen - POSITIVE c Antigen - POSITIVE e Antigen - POSITIVE 03/16/18 03:47 MARCOS, Poly Interpret Positive (NEGATIVE) H 03/16/18 03:47 BBK History Checked No verified bt 03/16/18 03:47 Discharge Exam - Head Exam Head Exam: ATRAUMATIC, NORMAL INSPECTION, NORMOCEPHALIC Discharge Plan - Discharge Medications Prescriptions: Folic Acid 1 mg PO DAILY #30 tab Lisinopril [Zestril] 10 mg PO DAILY #30 tab Pantoprazole [Protonix EC Tab] 40 mg PO 0600 #30 ect Polyethylene Glycol 3350 [Miralax] 17 gm PO BID #6 packet predniSONE [predniSONE Tab] 50 mg PO BID #60 tab Thiamine [Vitamin B1 Tab] 100 mg PO DAILY #30 tab - Follow Up Plan Condition: GUARDED Disposition: HOME/ ROUTINE Instructions: Autoimmune Hemolytic Anemia Additional Instructions: Mrs. Sunita Villegas, thank you for letting us take care of you today. Your provider was Dr. Huggins and you were treated for hemolytic anemia. The emergency medical care you received today was directed at your acute symptoms. If you were prescribed any medication, please fill it and take as directed. It may take several days for your symptoms to resolve. Return to the Emergency Department if your symptoms worsen, do not improve, or if you have any other problems. Please contact your doctor or call one of the physicians/clinics you have been referred to that are listed on the Patient Visit Information form that is included in your discharge packet. Bring any paperwork you were given at discharge with you along with any medications you are taking to your follow up visit. Our treatment cannot replace ongoing medical care by a primary care provider outside of the emergency department. 1. Please be sure to make a follow up appointment at the [facility] [place] within 3-5 days and establish care 2. Avoid taking medications that are not prescribed for you. 3. If any symptoms worsen or return please do not hesitate to go to the nearest emergency department for further evaluation. Thank you for allowing the [facility] team to be part of your care today. If you had an X-Ray or CT scan: A Radiologist will review the ED reading if any change in treatment is needed we will contact you. If you had a blood, urine, or wound culture: It will take several days for the results, if any change in treatment is needed we will contact you. If you had an STI test: It will take 48 hours for the results. Please call after 1 week if you have not heard back. Referrals: [facility] [place]] FAMILY PROVIDER,NO [Primary Care Provider] - Marin Barkley MD [Staff Provider] -
== END 2018-03-22 15:23 | disposition home or self-care (01) | DRG 810 ==
LOC: ED 00:58 → ERH 04:34 → 2RSO 05:55
PROVIDERS: ADMIT Internal Medicine; ATTEND Internal Medicine
DX: D59.1 Other autoimmune hemolytic anemias (principal); D72.829 Elevated white blood cell count, unspecified; T38.0X5A Adverse effect of glucocorticoids and synthetic analogues, initial encounter; D75.89 Other specified diseases of blood and blood-forming organs; I10 Essential (primary) hypertension; K59.00 Constipation, unspecified; Z79.899 Other long term (current) drug therapy; D53.9 Nutritional anemia, unspecified; R60.0 Localized edema; R00.1 Bradycardia, unspecified

== ENCOUNTER 2018-05-01 00:54 | Emergency (ER) | payer MEDICAID ==
[2018-05-01 00:54] VITALS: BMI 34.0
[2018-05-01 01:08] VITALS: RESP 17
--- NOTE | 2018-05-01 01:16 | ED PDOC ---
Arrival/HPI - General Chief Complaint: Dizziness/Lightheaded Time Seen by Provider: 05/01/18 01:06 Historian: Patient, Family - History of Present Illness Narrative History of Present Illness (Text): 05/01/18 01:15 Sunita Villegas is a 58 year old female, whose past medical history includes hemolytic anemia and diabetes, who presents to the Emergency department via EMS status post dizziness and near syncope prior to arrival. As per daughter, patient had sudden onset of dizziness at home. Patient notes she felt near- syncopal, fell forward, and hit the right-side of her face on the ground. Patient now complaining of pain to right face and neck pain. Patient denies loss of consciousness, vomiting, nausea, shortness of breath, chest pain, or any other complaints. Time/Duration: Prior to Arrival Symptom Onset: Sudden Symptom Course: Unchanged Activities at Onset: Light Context: Home Past Medical History - Provider Review Nursing Documentation Reviewed: Yes - Infectious Disease Hx of Infectious Diseases: None - Tetanus Immunization Tetanus Immunization: Unknown - Cardiac Hx Hypertension: Yes - Pulmonary Hx Respiratory Disorders: No - Neurological Hx Neurological Disorder: No - HEENT Hx HEENT Disorder: No - Renal Hx Renal Disorder: No - Endocrine/Metabolic Hx Endocrine Disorders: No - Hematological/Oncological Hx Anemia: Yes - Integumentary Hx Dermatological Disorder: No - Musculoskeletal/Rheumatological Hx Musculoskeletal Disorders: No Hx Falls: No - Gastrointestinal Hx Gastrointestinal Disorders: No - Genitourinary/Gynecological Hx Genitourinary Disorders: No - Psychiatric Hx Psychophysiologic Disorder: No Hx Substance Use: No Family/Social History - Physician Review Nursing Documentation Reviewed: Yes Family/Social History: Unknown Family HX Smoking Status: Smoker Currrent Status Unknown Hx Alcohol Use: No Hx Substance Use: No Allergies/Home Meds Allergies/Adverse Reactions: Allergies No Known Allergies Allergy (Verified 03/16/18 01:03) Home Medications: Home Meds Medication Instructions Recorded Confirmed Lisinopril 10 mg PO DAILY 03/16/18 03/16/18 Review of Systems - Physician Review All systems were reviewed & negative as marked: Yes - Review of Systems Constitutional: Normal. absent: Fevers Eyes: Normal ENT: Normal Respiratory: Normal. absent: SOB, Cough Cardiovascular: Other (+near-syncopal) Gastrointestinal: Normal. absent: Abdominal Pain, Diarrhea, Nausea Genitourinary Female: Normal. absent: Dysuria, Frequency, Hematuria, Urine Output Changes Musculoskeletal: Neck Pain, Other (+right facial pain) Skin: Normal. absent: Rash Neurological: Normal. absent: Headache, Dizziness Endocrine: Normal Hemo/Lymphatic: Normal Psychiatric: Normal Physical Exam Vital Signs Reviewed: Yes Vital Signs Temp Pulse Resp BP Pulse Ox 05/01/18 04:57 98.2 F 82 17 126/80 98 05/01/18 04:27 59 L 17 109/83 98 05/01/18 01:08 98.4 F 68 17 122/84 96 Temperature: Afebrile Blood Pressure: Normal Pulse: Regular Respiratory Rate: Normal Appearance: Positive for: Well-Appearing, Non-Toxic, Comfortable Mental Status: Positive for: Alert and Oriented X 3 - Systems Exam Head: Present: Normocephalic, Tenderness (Tednerness to right maxillofacial area ) Pupils: Present: PERRL Extroacular Muscles: Present: EOMI Conjunctiva: Present: Normal Ears: Present: Normal, NORMAL TM, Normal Canal. No: Erythema, TM Bulging, Fluid Mouth: Present: Moist Mucous Membranes Pharnyx: Present: Normal. No: ERYTHEMA, EXUDATE, TONSILS ENLARGED, Peritonsilar Swelling, Uvular Deviation, Muffled/Hoarse Voice, Strider, Soft Palate/Uvular Edema Neck: Present: Paraspinal Tenderness (Paracervical muscle tenderness). No: Meningeal Signs, MIDLINE TENDERNESS Respiratory/Chest: Present: Clear to Auscultation, Good Air Exchange. No: Respiratory Distress, Accessory Muscle Use Cardiovascular: Present: Regular Rate and Rhythm, Normal S1, S2. No: Murmurs Abdomen: No: Tenderness, Distention, Peritoneal Signs Back: Present: Normal Inspection Upper Extremity: Present: Normal Inspection, Normal ROM, NORMAL PULSES, Neurovascularly Intact, Capillary Refill < 2s. No: Cyanosis, Edema, Tenderness , Swelling, Erythema, Temperature Abnormalties, Deformity Lower Extremity: Present: Normal Inspection. No: Edema Neurological: Present: GCS=15, CN II-XII Intact, Speech Normal Skin: Present: Warm, Dry, Normal Color. No: Rashes Psychiatric: Present: Alert, Oriented x 3, Normal Insight, Normal Concentration Medical Decision Making ED Course and Treatment: 05/01/18 01:15 Impression: 58 year old female presents to Emergency department for dizziness, near-syncope , facial/neck pain s/p fall tonight. Plan: -- Labs -- EKG -- CXR -- CT cervical spine w/o contrast -- CT head w/o contrast -- CT Maxillofacial w/o contrast -- Reassess and disposition Progress Notes: Reviewed EKG, NSR at 60 bpm[address] Non-specific ST/T wave changes. 05/01/18 03:00 Chest X-ray reviewed, shows no acute processes. 05/01/18 04:36 CT Head shows: Brain: Unremarkable. Ventricles: Unremarkable. Bones/joints: Unremarkable. No acute fracture. Soft tissues: Unremarkable. Sinuses: Unremarkable as visualized. Mastoid air cells: Unremarkable as visualized. IMPRESSION: No acute intracranial pathology or traumatic injury. CT Cervical Spine shows: Vertebrae: Multilevel discogenic degenerative changes. Cervical kyphosis, which may be positional or due to muscle spasm. No acute fracture. Discs/spinal canal/neural foramina: No acute findings. Soft tissues: Unremarkable. Lung apices: Unremarkable as visualized. IMPRESSION: No acute C-spine traumatic injury. CT Maxillofacial shows: Bones/joints: No acute fracture. Soft tissues: Unremarkable. Orbits: Unremarkable. Sinuses: Paranasal sinus mucosal changes. With a small volume of clot the secretions filling the right sphenoid sinus. Please note that fluid levels and frothy secretions within the paranasal sinuses are nonspecific findings but could sometimes be seen in the setting of acute sinusitis; please correlate clinically for possible acute sinusitis. Impression: No acute facial bone fracture/dislocation. No acute orbital traumatic injury. 05/01/18 04:42 Discusses results and plan with pt and family. Pt was offered hospital observation for further evaluation but pt wishes to go home. Pt will sign out against medical advice. The patient is choosing to leave against medical advice. I have personally explained to the patient that choosing to do so may result in permanent bodily harm or . I have discussed at great length that without further evaluation and monitoring there may be unforeseen circumstances and/or deterioration causing permanent bodily harm or as a result of their choice. The patient is alert, oriented, and shows the mental capacity to make clear decisions regarding the patients health care at this time. The patient continues to wish to leave against medical advice. In light of the patients decision to leave against medical advice, patient is aware of the importance to following up as instructed. The patient has been advised that they should return to the emergency room immediately if they change their mind at any time, or if their condition begins to change or worsen in any way. - Lab Interpretations Lab Results: 05/01/18 01:39 05/01/18 01:39 Lab Results 05/01/18 01:39: WBC 13.1 H D, RBC 3.60, Hgb 12.2, Hct 33.9 L, MCV 94.2 D, MCH 33.9, MCHC 36.0, RDW 13.0, Plt Count 280, MPV 9.6 05/01/18 01:39: PT 10.9, INR 0.96, APTT 22.4 L 05/01/18 01:39: Sodium 128 L, Potassium 4.6, Chloride 92 L, Carbon Dioxide 26, Anion Gap 15, BUN 33 H, Creatinine 0.9, Est GFR ( Amer) > 60, Est GFR ( Non-Af Amer) > 60, Random Glucose 278 H, Calcium 9.2, Total Bilirubin 0.6, AST 41 H D, ALT 81 H, Alkaline Phosphatase 52, Lactate Dehydrogenase 797 H, Total Creatine Kinase 77, Troponin I 0.03 D, Total Protein 6.7, Albumin 3.8, Globulin 2.9, Albumin/Globulin Ratio 1.3 I have reviewed the lab results: Yes - RAD Interpretation Radiology Orders: 05/01/18 01:15 HEAD W/O CONTRAST [CT] Stat 05/01/18 01:17 CHEST PORTABLE [RAD] Stat 05/01/18 01:19 CERVICAL SPINE W/O CONTRAST [CT] Stat MAXILLOFACIAL W/O CONTRAST [CT] Stat [employer] Consultant: ED Physician, Radiologist - EKG Interpretation Interpreted by ED Physician: Yes Type: 12 lead EKG - Medication Orders Current Medication Orders: Discontinued Medications Oxycodone/Acetaminophen (Percocet 5/325 Mg Tab) 1 tab PO STAT STA Stop: 05/01/18 01:21 Last Admin: 05/01/18 01:54 Dose: 1 tab MAR Pain Assessment Document 05/01/18 01:54 IT (Rec: 05/01/18 01:54 IT [id number]) Pain Reassessment Is this a pain reassessment? No Sleep Is patient sleeping during reassessment? No Presence of Pain Presence of Pain Yes Pain Scale Used Pain Scale Used Numeric - Scribe Statement The provider has reviewed the documentation as recorded by the Scribe Sue Hoyt, under the training of Priya Garrison. All medical record entries made by the Scribe were at my direction and personally dictated by me. I have reviewed the chart and agree that the record accurately reflects my personal performance of the history, physical exam, medical decision making, and the department course for this patient. I have also personally directed, reviewed, and agree with the discharge instructions and disposition. Disposition/Present on Arrival - Present on Arrival Any Indicators Present on Arrival: No History of DVT/PE: No History of Uncontrolled Diabetes: No Urinary Catheter: No History of Decub. Ulcer: No History Surgical Site Infection Following: None - Disposition Have Diagnosis and Disposition been Completed?: Yes Diagnosis: Dizziness, Head injury, Neck injury, Near syncope Disposition: AGAINST MEDICAL ADVICE Disposition Time: 05:00 Condition: STABLE Forms: [employer] (Surinamese)
[2018-05-01] MEDS ORDERED: Oxycodone/Acetaminophen 5/325 mg Tab PO STA (01:20)
[2018-05-01 01:56] LABS: HEMOGLOBIN 12.2 g/dL (12.0-16.0); MEAN CORPUSCULAR HEMOGLOBIN 33.9 pg (25.0-35.0); MEAN PLATELET VOLUME 9.6 fl (7.0-11.0); RBC 3.6 10^6/uL (3.5-6.1); WHITE BLOOD COUNT 13.1 10^3/ul (4.5-11.0)
[2018-05-01 02:02] LABS: INR 0.96 (0.93-1.08); PARTIAL THROMBOPLASTIN TIME 22.4 Seconds (25.1-36.5); PROTHROMBIN TIME 10.9 SECONDS (9.4-12.5)
[2018-05-01 02:04] LABS: MEAN CELL VOLUME 94.2 fl (80.0-105.0)
[2018-05-01 02:08] LABS: ALB/GLOB RATIO 1.3 (1.1-1.8); ALBUMIN 3.8 g/dL (3.0-4.8); ALT/SGPT 81 U/L (7-56); AST/SGOT 41 U/L (14-36); BLOOD UREA NITROGEN 33 mg/dL (7-21); CALCIUM 9.2 mg/dL (8.4-10.5); GFR AFRICAN-AMERICAN > 60; GFR NON-AFRICAN AMERICAN > 60
[2018-05-01 02:18] LABS: TROPONIN I 0.03 ng/mL
[2018-05-01 04:29] VITALS: O2SAT 98
[2018-05-01 04:57] VITALS: BP 126/80; PULSE 82; TEMP 98.2
--- NOTE | 2018-05-01 08:33 | CT ---
Date of service: 05/01/2018 PROCEDURE: CT HEAD WITHOUT CONTRAST. HISTORY: injury COMPARISON: 03/16/2018 TECHNIQUE: Axial computed tomography images were obtained through the head/brain without intravenous contrast. Radiation dose: Total exam DLP = 855 mGy-cm. This CT exam was performed using one or more of the following dose reduction techniques: Automated exposure control, adjustment of the mA and/or kV according to patient size, and/or use of iterative reconstruction technique. FINDINGS: HEMORRHAGE: No intracranial hemorrhage. BRAIN: No mass effect or edema. No atrophy or chronic microvascular ischemic changes. VENTRICLES: Unremarkable. No hydrocephalus. CALVARIUM: Unremarkable. PARANASAL SINUSES: There is opacification of the right side of the sphenoid sinus MASTOID AIR CELLS: Unremarkable as visualized. No inflammatory changes. OTHER FINDINGS: The report concurs with the preliminary [facility] report IMPRESSION: No acute findings
--- NOTE | 2018-05-01 08:36 | CT ---
Date of service: 05/01/2018 PROCEDURE: CT MAXILLOFACIAL BONES WITHOUT CONTRAST HISTORY: injury COMPARISON: None TECHNIQUE: Contiguous axial CT images of the maxillofacial bones were obtained. Coronal and sagittal reformats were generated. Radiation dose: Total exam DLP = 797 mGy-cm. This CT exam was performed using one or more of the following dose reduction techniques: Automated exposure control, adjustment of the mA and/or kV according to patient size, and/or use of iterative reconstruction technique. FINDINGS: NASAL BONES: Unremarkable. ORBITS: Unremarkable. PARANASAL SINUSES/ MASTOIDS: Opacification of the right side of the sphenoid sinus MAXILLA: Unremarkable. MANDIBLE/ TEMPOROMANDIBULAR JOINTS: Unremarkable. SKULL BASE: Unremarkable. TEMPORAL BONES: Middle ears and mastoid grossly unremarkable. OTHER FINDINGS: The report concurs with the preliminary [facility] report IMPRESSION: No acute findings
--- NOTE | 2018-05-01 08:39 | CT ---
Date of service: 05/01/2018 PROCEDURE: CT Cervical Spine without contrast HISTORY: injury COMPARISON: None available. TECHNIQUE: Axial computed tomography images were obtained of the cervical spine without the use of intravenous contrast. Coronal and sagittal reformatted images were created and reviewed. Radiation dose: Total exam DLP = 484 mGy-cm. This CT exam was performed using one or more of the following dose reduction techniques: Automated exposure control, adjustment of the mA and/or kV according to patient size, and/or use of iterative reconstruction technique. FINDINGS: VERTEBRAE: No fracture. Normal alignment. No destructive bony lesion. DISCS/SPINAL CANAL/NEURAL FORAMINA: No significant central canal or neural foraminal stenosis. Discs heights are grossly preserved. PARASPINAL SOFT TISSUES: Unremarkable. OTHER FINDINGS: The report concurs with the preliminary [facility] report IMPRESSION: Unremarkable CT of the cervical spine.
--- NOTE | 2018-05-01 08:42 | RAD ---
Date of service: 05/01/2018 HISTORY: Dizziness COMPARISON: 03/16/2018. FINDINGS: LUNGS: The lungs are well inflated and clear. PLEURA: No significant pleural effusion identified, no pneumothorax apparent. CARDIOVASCULAR: Normal. OSSEOUS STRUCTURES: No significant abnormalities. VISUALIZED UPPER ABDOMEN: Normal. OTHER FINDINGS: None. IMPRESSION: No active pulmonary disease.
--- NOTE | 2018-05-01 09:27 | CARD ---
APPROVED REPORT Date of service: 05/01/2018 EKG Measurement Heart [id number] ID [id number] <Conclusion> Normal sinus rhythm Possible Left atrial enlargement
== END 2018-05-01 04:57 | disposition left against medical advice (07) ==
LOC: ED 00:54
DX: S09.90XA Unspecified injury of head, initial encounter (principal); S19.9XXA Unspecified injury of neck, initial encounter; W18.30XA Fall on same level, unspecified, initial encounter; Y92.9 Unspecified place or not applicable; R42 Dizziness and giddiness; R55 Syncope and collapse; I10 Essential (primary) hypertension; E11.9 Type 2 diabetes mellitus without complications; F17.200 Nicotine dependence, unspecified, uncomplicated